=== PATIENT | female | born 1935 | race Caucasian/White ===

== ENCOUNTER 2022-04-12 22:43 | Inpatient (IN) | payer MEDICARE ==
[~2022-04-12] VITALS: Ht 157.5 cm; Wt 78.5 kg
[2022-04-12 23:09] LABS: BASOPHILS % 0.2 % (0.0-1.0); HEMATOCRIT 47.9 % (34.2-44.1); HEMOGLOBIN 15.8 g/dL (12.0-16.0); LYMPHOCYTES # (AUTO) 1.1 (1.0-3.2); LYMPHOCYTES % 9.6 % (18.0-39.1); MEAN CORPUSCULAR VOLUME 94.1 fL (81-99); MONOCYTES # (AUTO) 0.4 (0.2-0.8); MONOCYTES % 3.8 % (4.4-11.3); NEUTROPHILS # (AUTO) 9.6 (2.1-6.9); PLATELET COUNT 272 x10e3/uL (140-360); RED BLOOD COUNT 5.09 x10e6/uL (3.6-5.1); RED CELL DISTRIBUTION WIDTH 14.6 % (11.7-14.4)
[2022-04-12 23:11] LABS: CLARITY,URINE CLEAR (CLEAR); COLOR,URINE YELLOW (YELLOW); KETONES,URINE TRACE (NEGATIVE); LEUKOCYTE ESTERASE ,URINE NEGATIVE (NEGATIVE); NITRITE,URINE NEGATIVE (NEGATIVE); PROTEIN,URINE DIPSTICK 2+ (NEGATIVE)
[2022-04-12 23:15] LABS: AMORPHOUS SEDIMENT,URINE FEW (FEW); BACTERIA,URINE FEW /HPF; EPITHELIAL CELLS,URINE RARE /LPF; RBC,URINE 0-5 /HPF (0-5); WBC,URINE (MAN) 0-5 /HPF (0-5)
[2022-04-12] MEDS ORDERED: ACETAMINOPHEN 325 MG TAB PO ONE (23:15)
[2022-04-12] MEDS ORDERED: SODIUM CHLORIDE 0.9% 1000ML 1,000 ML IV SCH (23:15)
[2022-04-12 23:27] LABS: ALBUMIN/GLOBULIN RATIO 0.6 (0.8-2.0); ANION GAP 18.5 mmol/L (8-16); CALCIUM 9.1 mg/dL (8.4-10.2); CREATININE, SERUM 0.77 mg/dL (0.57-1.11); POTASSIUM 4.5 mmol/L (3.5-5.1)
[2022-04-12 23:31] LABS: B-TYPE NATRIURETIC PEPTIDE2 40.5 pg/mL (0-100)
[2022-04-12 23:34] LABS: CREATINE KINASE MB 0.8 ng/mL (0-5.0)
[2022-04-12] MEDS ORDERED: SODIUM CHLORIDE 0.9% 1000ML 1,000 ML IV ONE (23:45)
[2022-04-13] VITALS (8 sets, daily range): BP systolic 140–167; BP diastolic 57–86
[2022-04-13] MEDS ORDERED: SODIUM CHLORIDE 0.9% 1000ML 1,000 ML IV SCH
[2022-04-13] MEDS ORDERED: ONDANSETRON HCL INJ 2MG/ML 2ML 2 MG/ML VIAL IV PRN
[2022-04-13] MEDS ORDERED: REMDESIVIR 200MG 200 MG IV SCH
[2022-04-13] MEDS ORDERED: IOPAMIDOL 370 MG/ML 100 ML INFUS..BTL INJ ONE (00:20)
[2022-04-13] MEDS ORDERED: SODIUM CHLORIDE 0.9% 250ML 250 ML ONE (00:26)
[2022-04-13] MEDS ORDERED: POTASSIUM CHLORIDE 20 MEQ TAB CR PO STA (01:22)
[2022-04-13] MEDS ORDERED: DEXTROSE 50% SYRINGE 50 ML IV PRN ×2 (01:30)
[2022-04-13] MEDS ORDERED: ALBUTEROL/IPRATROPIUM 3 ML NEB NEB PRN (01:30)
[2022-04-13] MEDS ORDERED: DIPHENHYDRAMINE HCL 25 MG CAP PO PRN (01:30)
[2022-04-13] MEDS ORDERED: LIDOCAINE 4% PATCH TP PRN (01:30)
[2022-04-13] MEDS ORDERED: HYDRALAZINE HCL 20 MG/ML VIAL IV PRN (01:30)
[2022-04-13] MEDS ORDERED: TRICOR48 MG PO (03:07)
[2022-04-13] MEDS ORDERED: HYDROCHLOROTHIA50 MG PO (03:07)
[2022-04-13] MEDS ORDERED: OXYBUTYNIN CHLOR5 MG PO (03:07)
[2022-04-13] MEDS ORDERED: LOSARTAN POTASS25 MG PO (03:07)
[2022-04-13] MEDS ORDERED: METFORMIN HCL500 M1 PO (03:07)
[2022-04-13] MEDS: INSULIN REGULAR, HUMAN 100 UNIT/1 ML SQ SCH ×4 (07:30→21:00)
[2022-04-13 09:49] LABS: BASOPHILS % 0.3 % (0.0-1.0); EOSINOPHILS % 0.1 % (0.0-6.0); HEMATOCRIT 43.6 % (34.2-44.1); HEMOGLOBIN 14.1 g/dL (12.0-16.0); LYMPHOCYTES # (AUTO) 1.4 (1.0-3.2); LYMPHOCYTES % 18.3 % (18.0-39.1); MEAN CORPUSCULAR HGB CONC 32.3 g/dL (31-35); MEAN CORPUSCULAR VOLUME 95.8 fL (81-99); MONOCYTES # (AUTO) 0.3 (0.2-0.8); MONOCYTES % 3.8 % (4.4-11.3); NEUTROPHILS # (AUTO) 5.9 (2.1-6.9); NEUTROPHILS % 76.9 % (38.7-80.0); PLATELET COUNT 238 x10e3/uL (140-360); RED BLOOD COUNT 4.55 x10e6/uL (3.6-5.1); RED CELL DISTRIBUTION WIDTH 14.7 % (11.7-14.4)
[2022-04-13 10:12] LABS: ALBUMIN 2.5 g/dL (3.5-5.0); ALBUMIN/GLOBULIN RATIO 0.5 (0.8-2.0); ANION GAP 14.4 mmol/L (8-16); CALCIUM 8.3 mg/dL (8.4-10.2); CREATININE, SERUM 0.7 mg/dL (0.57-1.11); POTASSIUM 4.4 mmol/L (3.5-5.1)
[2022-04-13] MEDS: DEXAMETHASONE SOD PHOS 10 MG/1 ML VIAL IV SCH (10:37)
[2022-04-13] MEDS: ASCORBIC ACID 500 MG TAB PO SCH ×2 (10:37→16:42)
[2022-04-13] MEDS: CEFTRIAXONE 2 GM in SODIUM CHLORIDE 0.9% 100 ML IV SCH (10:37)
[2022-04-13] MEDS: ENOXAPARIN INJ 80 MG/0.8 ML SYR SC SCH ×2 (10:37→16:42)
[2022-04-13] MEDS: ZINC SULFATE 50 MG CAP PO SCH (10:37)
[2022-04-13] MEDS: REMDESIVIR 100MG 100 MG IV SCH (23:24)
[2022-04-14] VITALS (8 sets, daily range): BP systolic 138–160; BP diastolic 66–75
[2022-04-14 05:51] LABS: BASOPHILS % 0.1 % (0.0-1.0); HEMATOCRIT 43.3 % (34.2-44.1); HEMOGLOBIN 14.1 g/dL (12.0-16.0); LYMPHOCYTES % 12.6 % (18.0-39.1); MEAN CORPUSCULAR HEMOGLOBIN 31.1 pg (28-32); MEAN CORPUSCULAR HGB CONC 32.6 g/dL (31-35); MEAN CORPUSCULAR VOLUME 95.4 fL (81-99); MONOCYTES # (AUTO) 0.4 (0.2-0.8); MONOCYTES % 5.5 % (4.4-11.3); NEUTROPHILS # (AUTO) 6.2 (2.1-6.9); NEUTROPHILS % 80.9 % (38.7-80.0); PLATELET COUNT 274 x10e3/uL (140-360); RED BLOOD COUNT 4.54 x10e6/uL (3.6-5.1); RED CELL DISTRIBUTION WIDTH 14.3 % (11.7-14.4)
[2022-04-14 06:12] LABS: ANION GAP 15.9 mmol/L (8-16); CALCIUM 8.3 mg/dL (8.4-10.2); CREATININE, SERUM 0.65 mg/dL (0.57-1.11); MAGNESIUM 1.9 MG/DL (1.3-2.1); POTASSIUM 3.9 mmol/L (3.5-5.1)
[2022-04-14 06:39] LABS: THYROID STIMULATING HORMONE 0.38 uIU/mL (0.350-4.940)
[2022-04-14] MEDS: INSULIN REGULAR, HUMAN 100 UNIT/1 ML SQ SCH ×4 (07:30→21:24)
[2022-04-14] MEDS: ZINC SULFATE 50 MG CAP PO SCH (08:43)
[2022-04-14] MEDS: CEFTRIAXONE 2 GM in SODIUM CHLORIDE 0.9% 100 ML IV SCH (08:44)
[2022-04-14] MEDS: ASCORBIC ACID 500 MG TAB PO SCH ×2 (08:44→17:24)
[2022-04-14] MEDS: ENOXAPARIN INJ 80 MG/0.8 ML SYR SC SCH ×2 (08:44→17:25)
[2022-04-14] MEDS: DEXAMETHASONE SOD PHOS 10 MG/1 ML VIAL IV SCH (08:45)
[2022-04-14 08:59] LABS: BASOPHILS % 0.2 % (0.0-1.0); HEMATOCRIT 44.4 % (34.2-44.1); HEMOGLOBIN 14.6 g/dL (12.0-16.0); LYMPHOCYTES # (AUTO) 1.4 (1.0-3.2); LYMPHOCYTES % 13.6 % (18.0-39.1); MEAN CORPUSCULAR HEMOGLOBIN 31.1 pg (28-32); MEAN CORPUSCULAR HGB CONC 32.9 g/dL (31-35); MEAN CORPUSCULAR VOLUME 94.7 fL (81-99); MONOCYTES # (AUTO) 0.6 (0.2-0.8); MONOCYTES % 5.9 % (4.4-11.3); NEUTROPHILS # (AUTO) 8.3 (2.1-6.9); NEUTROPHILS % 79.5 % (38.7-80.0); PLATELET COUNT 296 x10e3/uL (140-360); RED BLOOD COUNT 4.69 x10e6/uL (3.6-5.1); RED CELL DISTRIBUTION WIDTH 14.6 % (11.7-14.4)
[2022-04-14 09:38] LABS: ALBUMIN 2.6 g/dL (3.5-5.0); ALBUMIN/GLOBULIN RATIO 0.5 (0.8-2.0); ANION GAP 13.9 mmol/L (8-16); CREATININE, SERUM 0.66 mg/dL (0.57-1.11); POTASSIUM 3.9 mmol/L (3.5-5.1)
[2022-04-14] MEDS: LOSARTAN POTASSIUM 25 MG TAB PO SCH (11:29)
[2022-04-14] MEDS ORDERED: IOPAMIDOL 370 MG/ML 100 ML INFUS..BTL INJ ONE (12:49)
[2022-04-14] MEDS: OXYBUTYNIN CHLORIDE 5 MG TAB PO SCH (17:24)
[2022-04-15] VITALS (11 sets, daily range): BP systolic 138–171; BP diastolic 50–77
[2022-04-15] MEDS: REMDESIVIR 100MG 100 MG IV SCH ×2 (01:28→23:46)
[2022-04-15] MEDS: INSULIN REGULAR, HUMAN 100 UNIT/1 ML SQ SCH ×4 (07:30→21:31)
[2022-04-15 08:24] LABS: BASOPHILS % 0.1 % (0.0-1.0); HEMATOCRIT 46.3 % (34.2-44.1); HEMOGLOBIN 14.8 g/dL (12.0-16.0); LYMPHOCYTES # (AUTO) 1.2 (1.0-3.2); LYMPHOCYTES % 8.1 % (18.0-39.1); MEAN CORPUSCULAR HEMOGLOBIN 30.8 pg (28-32); MEAN CORPUSCULAR VOLUME 96.3 fL (81-99); MONOCYTES # (AUTO) 0.7 (0.2-0.8); MONOCYTES % 4.7 % (4.4-11.3); NEUTROPHILS # (AUTO) 12.3 (2.1-6.9); NEUTROPHILS % 86.3 % (38.7-80.0); PLATELET COUNT 314 x10e3/uL (140-360); RED BLOOD COUNT 4.81 x10e6/uL (3.6-5.1); RED CELL DISTRIBUTION WIDTH 14.6 % (11.7-14.4)
[2022-04-15 08:46] LABS: ALBUMIN 2.6 g/dL (3.5-5.0); ALBUMIN/GLOBULIN RATIO 0.6 (0.8-2.0); CALCIUM 8.6 mg/dL (8.4-10.2); CREATININE, SERUM 0.67 mg/dL (0.57-1.11)
[2022-04-15] MEDS: ENOXAPARIN INJ 80 MG/0.8 ML SYR SC SCH (08:48)
[2022-04-15] MEDS: FENOFIBRATE 67 MG PO SCH (09:00)
[2022-04-15] MEDS: DEXAMETHASONE SOD PHOS 10 MG/1 ML VIAL IV SCH (09:55)
[2022-04-15] MEDS: ZINC SULFATE 50 MG CAP PO SCH (09:55)
[2022-04-15] MEDS: LOSARTAN POTASSIUM 25 MG TAB PO SCH (09:56)
[2022-04-15] MEDS: ASCORBIC ACID 500 MG TAB PO SCH ×2 (09:56→16:48)
[2022-04-15] MEDS: OXYBUTYNIN CHLORIDE 5 MG TAB PO SCH ×2 (09:56→16:48)
[2022-04-15] MEDS: CEFTRIAXONE 2 GM in SODIUM CHLORIDE 0.9% 100 ML IV SCH (09:56)
[2022-04-15] MEDS: ENOXAPARIN 30 MG/0.3 ML SYR SC SCH (16:48)
[2022-04-15] MEDS ORDERED: SODIUM CHLORIDE 0.9% 250ML 250 ML ONE (23:29)
[2022-04-16] VITALS (21 sets, daily range): BP systolic 122–190; BP diastolic 54–100
[2022-04-16 07:28] LABS: BASOPHILS % 0.2 % (0.0-1.0); HEMATOCRIT 43.5 % (34.2-44.1); HEMOGLOBIN 14.2 g/dL (12.0-16.0); LYMPHOCYTES # (AUTO) 1.3 (1.0-3.2); MEAN CORPUSCULAR HEMOGLOBIN 31.3 pg (28-32); MEAN CORPUSCULAR HGB CONC 32.6 g/dL (31-35); MONOCYTES # (AUTO) 0.7 (0.2-0.8); MONOCYTES % 5.1 % (4.4-11.3); NEUTROPHILS # (AUTO) 11.1 (2.1-6.9); NEUTROPHILS % 83.5 % (38.7-80.0); PLATELET COUNT 240 x10e3/uL (140-360); RED BLOOD COUNT 4.53 x10e6/uL (3.6-5.1); RED CELL DISTRIBUTION WIDTH 14.6 % (11.7-14.4)
[2022-04-16] MEDS: INSULIN REGULAR, HUMAN 100 UNIT/1 ML SQ SCH ×4 (07:30→21:18)
[2022-04-16 08:09] LABS: ALBUMIN 2.4 g/dL (3.5-5.0); ALBUMIN/GLOBULIN RATIO 0.5 (0.8-2.0); ANION GAP 13.9 mmol/L (8-16); CALCIUM 8.2 mg/dL (8.4-10.2); CREATININE, SERUM 0.66 mg/dL (0.57-1.11); POTASSIUM 3.9 mmol/L (3.5-5.1)
[2022-04-16] MEDS: FENOFIBRATE 67 MG PO SCH (09:00)
[2022-04-16] MEDS: DEXAMETHASONE SOD PHOS 10 MG/1 ML VIAL IV SCH (10:09)
[2022-04-16] MEDS: BARICITINIB 2 MG TABLET PO SCH (10:09)
[2022-04-16] MEDS: ASCORBIC ACID 500 MG TAB PO SCH ×2 (10:11→17:11)
[2022-04-16] MEDS: OXYBUTYNIN CHLORIDE 5 MG TAB PO SCH ×3 (10:11→19:46)
[2022-04-16] MEDS: ZINC SULFATE 50 MG CAP PO SCH (10:11)
[2022-04-16] MEDS: LOSARTAN POTASSIUM 25 MG TAB PO SCH (10:12)
[2022-04-16] MEDS: ENOXAPARIN 30 MG/0.3 ML SYR SC SCH ×2 (10:12→17:00)
[2022-04-16] MEDS: CEFTRIAXONE 2 GM in SODIUM CHLORIDE 0.9% 100 ML IV SCH (10:13)
[2022-04-16] MEDS: REMDESIVIR 100MG 100 MG IV SCH (23:22)
[2022-04-17] VITALS (23 sets, daily range): BP systolic 120–193; BP diastolic 59–106
[2022-04-17 06:17] LABS: BASOPHILS % 0.3 % (0.0-1.0); EOSINOPHILS % 0.1 % (0.0-6.0); HEMATOCRIT 40.1 % (34.2-44.1); LYMPHOCYTES # (AUTO) 1.3 (1.0-3.2); MEAN CORPUSCULAR HEMOGLOBIN 31.3 pg (28-32); MEAN CORPUSCULAR HGB CONC 33.9 g/dL (31-35); MEAN CORPUSCULAR VOLUME 92.4 fL (81-99); MONOCYTES # (AUTO) 0.4 (0.2-0.8); MONOCYTES % 3.7 % (4.4-11.3); NEUTROPHILS # (AUTO) 9.5 (2.1-6.9); NEUTROPHILS % 82.6 % (38.7-80.0); RED BLOOD COUNT 4.34 x10e6/uL (3.6-5.1); RED CELL DISTRIBUTION WIDTH 14.6 % (11.7-14.4)
[2022-04-17 06:28] LABS: HEMOGLOBIN 13.6 g/dL (12.0-16.0); PLATELET COUNT 175 x10e3/uL (140-360)
[2022-04-17 06:50] LABS: ALBUMIN 2.2 g/dL (3.5-5.0); ALBUMIN/GLOBULIN RATIO 0.5 (0.8-2.0); ANION GAP 10.8 mmol/L (8-16); CALCIUM 7.9 mg/dL (8.4-10.2); CREATININE, SERUM 0.63 mg/dL (0.57-1.11); POTASSIUM 3.8 mmol/L (3.5-5.1)
[2022-04-17] MEDS: INSULIN REGULAR, HUMAN 100 UNIT/1 ML SQ SCH ×4 (07:30→21:14)
[2022-04-17] MEDS: FENOFIBRATE 67 MG PO SCH (09:00)
[2022-04-17] MEDS: LOSARTAN POTASSIUM 25 MG TAB PO SCH (09:55)
[2022-04-17] MEDS: CEFTRIAXONE 2 GM in SODIUM CHLORIDE 0.9% 100 ML IV SCH (09:55)
[2022-04-17] MEDS: DEXAMETHASONE SOD PHOS 10 MG/1 ML VIAL IV SCH (09:55)
[2022-04-17] MEDS: BARICITINIB 2 MG TABLET PO SCH (09:56)
[2022-04-17] MEDS: ENOXAPARIN 30 MG/0.3 ML SYR SC SCH ×3 (09:56→19:14)
[2022-04-17] MEDS: ZINC SULFATE 50 MG CAP PO SCH (09:56)
[2022-04-17] MEDS: ASCORBIC ACID 500 MG TAB PO SCH ×2 (09:56→18:40)
[2022-04-17] MEDS: OXYBUTYNIN CHLORIDE 5 MG TAB PO SCH ×2 (10:12→18:40)
[2022-04-17] MEDS: REMDESIVIR 100MG 100 MG IV SCH (23:50)
[2022-04-18] VITALS (25 sets, daily range): BP systolic 132–176; BP diastolic 53–135
[2022-04-18 06:44] LABS: BASOPHILS % 0.1 % (0.0-1.0); EOSINOPHILS % 0.1 % (0.0-6.0); HEMATOCRIT 43.1 % (34.2-44.1); HEMOGLOBIN 14.2 g/dL (12.0-16.0); LYMPHOCYTES # (AUTO) 1.1 (1.0-3.2); LYMPHOCYTES % 7.8 % (18.0-39.1); MEAN CORPUSCULAR HEMOGLOBIN 31.3 pg (28-32); MEAN CORPUSCULAR HGB CONC 32.9 g/dL (31-35); MEAN CORPUSCULAR VOLUME 94.9 fL (81-99); MONOCYTES # (AUTO) 0.5 (0.2-0.8); MONOCYTES % 3.5 % (4.4-11.3); NEUTROPHILS # (AUTO) 12.3 (2.1-6.9); NEUTROPHILS % 86.1 % (38.7-80.0); PLATELET COUNT 130 x10e3/uL (140-360); RED BLOOD COUNT 4.54 x10e6/uL (3.6-5.1); RED CELL DISTRIBUTION WIDTH 14.6 % (11.7-14.4)
[2022-04-18 07:05] LABS: ALBUMIN 2.2 g/dL (3.5-5.0); ALBUMIN/GLOBULIN RATIO 0.6 (0.8-2.0); CALCIUM 8.2 mg/dL (8.4-10.2); CREATININE, SERUM 0.6 mg/dL (0.57-1.11)
[2022-04-18] MEDS: INSULIN REGULAR, HUMAN 100 UNIT/1 ML SQ SCH ×4 (07:30→20:48)
[2022-04-18] MEDS: DEXAMETHASONE SOD PHOS 10 MG/1 ML VIAL IV SCH (08:49)
[2022-04-18] MEDS: ASCORBIC ACID 500 MG TAB PO SCH ×2 (08:50→16:33)
[2022-04-18] MEDS: ZINC SULFATE 50 MG CAP PO SCH (08:50)
[2022-04-18] MEDS: LOSARTAN POTASSIUM 25 MG TAB PO SCH (08:50)
[2022-04-18] MEDS: BARICITINIB 2 MG TABLET PO SCH (08:50)
[2022-04-18] MEDS: OXYBUTYNIN CHLORIDE 5 MG TAB PO SCH ×2 (08:51→16:33)
[2022-04-18] MEDS: FENOFIBRATE 67 MG PO SCH (08:51)
[2022-04-18] MEDS: ENOXAPARIN 30 MG/0.3 ML SYR SC SCH ×2 (08:51→16:35)
[2022-04-18] MEDS: CEFTRIAXONE 2 GM in SODIUM CHLORIDE 0.9% 100 ML IV SCH (08:52)
[2022-04-18] MEDS: DOCUSATE SODIUM 100 MG CAP PO PRN (16:33)
[2022-04-19] VITALS (21 sets, daily range): BP systolic 124–188; BP diastolic 55–80
[2022-04-19 06:41] LABS: BASOPHILS # (AUTO) 0.1 (0.0-0.1); BASOPHILS % 0.3 % (0.0-1.0); EOSINOPHILS % 0.1 % (0.0-6.0); HEMATOCRIT 42.1 % (34.2-44.1); HEMOGLOBIN 14.3 g/dL (12.0-16.0); LYMPHOCYTES # (AUTO) 1.3 (1.0-3.2); LYMPHOCYTES % 5.8 % (18.0-39.1); MEAN CORPUSCULAR HEMOGLOBIN 31.1 pg (28-32); MONOCYTES # (AUTO) 0.9 (0.2-0.8); NEUTROPHILS # (AUTO) 18.8 (2.1-6.9); PLATELET COUNT 131 x10e3/uL (140-360); RED CELL DISTRIBUTION WIDTH 14.7 % (11.7-14.4)
[2022-04-19 06:55] LABS: MEAN CORPUSCULAR VOLUME 91.5 fL (81-99)
[2022-04-19 07:04] LABS: ALBUMIN 2.2 g/dL (3.5-5.0); ALBUMIN/GLOBULIN RATIO 0.5 (0.8-2.0); ANION GAP 12.1 mmol/L (8-16); CALCIUM 8.3 mg/dL (8.4-10.2); CREATININE, SERUM 0.59 mg/dL (0.57-1.11); POTASSIUM 4.1 mmol/L (3.5-5.1)
[2022-04-19] MEDS: INSULIN REGULAR, HUMAN 100 UNIT/1 ML SQ SCH ×4 (07:30→21:00)
[2022-04-19] MEDS: ENOXAPARIN 30 MG/0.3 ML SYR SC SCH ×2 (08:57→16:43)
[2022-04-19] MEDS: DEXAMETHASONE SOD PHOS 10 MG/1 ML VIAL IV SCH (08:57)
[2022-04-19] MEDS: DOCUSATE SODIUM LIQD 100 MG/10 ML UDC NG SCH (08:57)
[2022-04-19] MEDS: ZINC SULFATE 50 MG CAP PO SCH (08:57)
[2022-04-19] MEDS: ASCORBIC ACID 500 MG TAB PO SCH ×2 (08:57→16:41)
[2022-04-19] MEDS: BARICITINIB 2 MG TABLET PO SCH (08:58)
[2022-04-19] MEDS: OXYBUTYNIN CHLORIDE 5 MG TAB PO SCH ×2 (08:58→16:42)
[2022-04-19] MEDS: FENOFIBRATE 67 MG PO SCH (08:59)
[2022-04-19] MEDS: LOSARTAN POTASSIUM 25 MG TAB PO SCH (08:59)
[2022-04-19] MEDS ORDERED: SODIUM CHLORIDE 0.9% 250ML 250 ML ONE (22:25)
[2022-04-20] VITALS (23 sets, daily range): BP systolic 82–166; BP diastolic 55–94
[2022-04-20 07:11] LABS: BASOPHILS # (AUTO) 0.1 (0.0-0.1); BASOPHILS % 0.4 % (0.0-1.0); EOSINOPHILS # (AUTO) 0.1 (0.0-0.4); EOSINOPHILS % 0.4 % (0.0-6.0); HEMATOCRIT 46.8 % (34.2-44.1); HEMOGLOBIN 15.3 g/dL (12.0-16.0); LYMPHOCYTES # (AUTO) 1.7 (1.0-3.2); LYMPHOCYTES % 8.5 % (18.0-39.1); MEAN CORPUSCULAR HEMOGLOBIN 30.8 pg (28-32); MEAN CORPUSCULAR HGB CONC 32.7 g/dL (31-35); MEAN CORPUSCULAR VOLUME 94.4 fL (81-99); MONOCYTES # (AUTO) 0.9 (0.2-0.8); MONOCYTES % 4.4 % (4.4-11.3); NEUTROPHILS # (AUTO) 17.1 (2.1-6.9); NEUTROPHILS % 84.2 % (38.7-80.0); PLATELET COUNT 120 x10e3/uL (140-360); RED BLOOD COUNT 4.96 x10e6/uL (3.6-5.1); RED CELL DISTRIBUTION WIDTH 14.8 % (11.7-14.4)
[2022-04-20] MEDS: INSULIN REGULAR, HUMAN 100 UNIT/1 ML SQ SCH ×4 (07:30→21:00)
[2022-04-20 07:34] LABS: ALBUMIN 2.3 g/dL (3.5-5.0); ALBUMIN/GLOBULIN RATIO 0.5 (0.8-2.0); ANION GAP 12.1 mmol/L (8-16); CALCIUM 8.5 mg/dL (8.4-10.2); CREATININE, SERUM 0.64 mg/dL (0.57-1.11); POTASSIUM 4.1 mmol/L (3.5-5.1)
[2022-04-20] MEDS: ASCORBIC ACID 500 MG TAB PO SCH ×2 (08:47→16:31)
[2022-04-20] MEDS: DOCUSATE SODIUM LIQD 100 MG/10 ML UDC NG SCH (08:47)
[2022-04-20] MEDS: OXYBUTYNIN CHLORIDE 5 MG TAB PO SCH ×2 (08:47→16:31)
[2022-04-20] MEDS: ZINC SULFATE 50 MG CAP PO SCH (08:47)
[2022-04-20] MEDS: DEXAMETHASONE SOD PHOS 10 MG/1 ML VIAL IV SCH (08:48)
[2022-04-20] MEDS: FENOFIBRATE 67 MG PO SCH (08:48)
[2022-04-20] MEDS: LOSARTAN POTASSIUM 25 MG TAB PO SCH (08:49)
[2022-04-20] MEDS: ENOXAPARIN 30 MG/0.3 ML SYR SC SCH ×2 (08:49→16:32)
[2022-04-20] MEDS ORDERED: LACTULOSE SYRUP 20 GM/30 ML UDC PO PRN (15:15)
[2022-04-20] MEDS: DOCUSATE SODIUM 100 MG CAP PO PRN (16:31)
[2022-04-21] VITALS (24 sets, daily range): BP systolic 81–151; BP diastolic 51–86
[2022-04-21 06:49] LABS: BASOPHILS % 0.2 % (0.0-1.0); EOSINOPHILS # (AUTO) 0.1 (0.0-0.4); EOSINOPHILS % 0.4 % (0.0-6.0); HEMATOCRIT 42.1 % (34.2-44.1); HEMOGLOBIN 13.8 g/dL (12.0-16.0); LYMPHOCYTES # (AUTO) 1.1 (1.0-3.2); MEAN CORPUSCULAR HEMOGLOBIN 31.1 pg (28-32); MEAN CORPUSCULAR HGB CONC 32.8 g/dL (31-35); MEAN CORPUSCULAR VOLUME 94.8 fL (81-99); MONOCYTES # (AUTO) 0.7 (0.2-0.8); MONOCYTES % 4.1 % (4.4-11.3); NEUTROPHILS # (AUTO) 15.8 (2.1-6.9); NEUTROPHILS % 87.7 % (38.7-80.0); PLATELET COUNT 132 x10e3/uL (140-360); RED BLOOD COUNT 4.44 x10e6/uL (3.6-5.1); RED CELL DISTRIBUTION WIDTH 14.6 % (11.7-14.4)
[2022-04-21 07:28] LABS: ALBUMIN 2.2 g/dL (3.5-5.0); ALBUMIN/GLOBULIN RATIO 0.5 (0.8-2.0); CALCIUM 8.7 mg/dL (8.4-10.2); CREATININE, SERUM 0.58 mg/dL (0.57-1.11)
[2022-04-21] MEDS: INSULIN REGULAR, HUMAN 100 UNIT/1 ML SQ SCH ×4 (07:30→21:00)
[2022-04-21] MEDS: FENOFIBRATE 67 MG PO SCH (09:00)
[2022-04-21] MEDS: DEXAMETHASONE SOD PHOS 10 MG/1 ML VIAL IV SCH (09:03)
[2022-04-21] MEDS: DOCUSATE SODIUM LIQD 100 MG/10 ML UDC NG SCH (09:05)
[2022-04-21] MEDS: ASCORBIC ACID 500 MG TAB PO SCH ×2 (09:05→16:17)
[2022-04-21] MEDS: OXYBUTYNIN CHLORIDE 5 MG TAB PO SCH ×2 (09:05→16:17)
[2022-04-21] MEDS: LOSARTAN POTASSIUM 25 MG TAB PO SCH (09:06)
[2022-04-21] MEDS: ZINC SULFATE 50 MG CAP PO SCH (09:06)
[2022-04-21] MEDS: ENOXAPARIN 30 MG/0.3 ML SYR SC SCH ×2 (09:07→16:18)
[2022-04-22] VITALS (26 sets, daily range): BP systolic 93–157; BP diastolic 41–108
[2022-04-22] MEDS: INSULIN REGULAR, HUMAN 100 UNIT/1 ML SQ SCH ×4 (06:37→21:17)
[2022-04-22 06:39] LABS: BASOPHILS % 0.2 % (0.0-1.0); EOSINOPHILS # (AUTO) 0.1 (0.0-0.4); EOSINOPHILS % 0.5 % (0.0-6.0); HEMATOCRIT 42.3 % (34.2-44.1); HEMOGLOBIN 13.7 g/dL (12.0-16.0); LYMPHOCYTES # (AUTO) 1.2 (1.0-3.2); LYMPHOCYTES % 6.2 % (18.0-39.1); MEAN CORPUSCULAR HEMOGLOBIN 30.9 pg (28-32); MEAN CORPUSCULAR HGB CONC 32.4 g/dL (31-35); MEAN CORPUSCULAR VOLUME 95.5 fL (81-99); MONOCYTES # (AUTO) 0.7 (0.2-0.8); NEUTROPHILS # (AUTO) 16.3 (2.1-6.9); NEUTROPHILS % 87.7 % (38.7-80.0); PLATELET COUNT 133 x10e3/uL (140-360); RED BLOOD COUNT 4.43 x10e6/uL (3.6-5.1); RED CELL DISTRIBUTION WIDTH 14.6 % (11.7-14.4)
[2022-04-22 07:10] LABS: ALBUMIN 2.1 g/dL (3.5-5.0); ALBUMIN/GLOBULIN RATIO 0.5 (0.8-2.0); ANION GAP 12.2 mmol/L (8-16); CALCIUM 8.5 mg/dL (8.4-10.2); CREATININE, SERUM 0.64 mg/dL (0.57-1.11); POTASSIUM 4.2 mmol/L (3.5-5.1)
[2022-04-22] MEDS: DEXAMETHASONE SOD PHOS 10 MG/1 ML VIAL IV SCH (08:37)
[2022-04-22] MEDS: OXYBUTYNIN CHLORIDE 5 MG TAB PO SCH ×2 (08:40→16:23)
[2022-04-22] MEDS: ASCORBIC ACID 500 MG TAB PO SCH ×2 (08:40→16:23)
[2022-04-22] MEDS: ZINC SULFATE 50 MG CAP PO SCH (08:40)
[2022-04-22] MEDS: FENOFIBRATE 67 MG PO SCH (08:41)
[2022-04-22] MEDS: ENOXAPARIN 30 MG/0.3 ML SYR SC SCH ×2 (08:41→16:23)
[2022-04-22] MEDS: DOCUSATE SODIUM LIQD 100 MG/10 ML UDC NG SCH (09:00)
[2022-04-22] MEDS: LOSARTAN POTASSIUM 25 MG TAB PO SCH (09:06)
[2022-04-22] MEDS: GUAIFENESIN 600MG/DEXTROMETHORPHAN 30MG TABSR PO PRN ×2 (11:40→22:43)
[2022-04-23] VITALS (23 sets, daily range): BP systolic 59–159; BP diastolic 20–103
[2022-04-23] MEDS: INSULIN REGULAR, HUMAN 100 UNIT/1 ML SQ SCH ×4 (07:30→21:37)
[2022-04-23] MEDS: FENOFIBRATE 67 MG PO SCH (09:00)
[2022-04-23] MEDS: ZINC SULFATE 50 MG CAP PO SCH (09:04)
[2022-04-23] MEDS: ENOXAPARIN 30 MG/0.3 ML SYR SC SCH ×2 (09:04→16:36)
[2022-04-23] MEDS: DOCUSATE SODIUM LIQD 100 MG/10 ML UDC NG SCH (09:06)
[2022-04-23] MEDS: DEXAMETHASONE SOD PHOS 10 MG/1 ML VIAL IV SCH (09:06)
[2022-04-23] MEDS: LOSARTAN POTASSIUM 25 MG TAB PO SCH (09:06)
[2022-04-23] MEDS: OXYBUTYNIN CHLORIDE 5 MG TAB PO SCH ×2 (09:07→16:36)
[2022-04-23] MEDS: ASCORBIC ACID 500 MG TAB PO SCH ×2 (09:07→16:35)
[2022-04-23] MEDS: GUAIFENESIN 600MG/DEXTROMETHORPHAN 30MG TABSR PO PRN ×2 (10:16→21:39)
[2022-04-24] VITALS (23 sets, daily range): BP systolic 100–158; BP diastolic 27–89
[2022-04-24] MEDS: GUAIFENESIN 600MG/DEXTROMETHORPHAN 30MG TABSR PO PRN (06:07)
[2022-04-24 07:03] LABS: BASOPHILS % 0.1 % (0.0-1.0); EOSINOPHILS % 0.2 % (0.0-6.0); HEMATOCRIT 41.6 % (34.2-44.1); HEMOGLOBIN 13.4 g/dL (12.0-16.0); LYMPHOCYTES # (AUTO) 0.9 (1.0-3.2); LYMPHOCYTES % 6.4 % (18.0-39.1); MEAN CORPUSCULAR HEMOGLOBIN 30.9 pg (28-32); MEAN CORPUSCULAR HGB CONC 32.2 g/dL (31-35); MEAN CORPUSCULAR VOLUME 95.9 fL (81-99); MONOCYTES # (AUTO) 0.5 (0.2-0.8); MONOCYTES % 3.3 % (4.4-11.3); NEUTROPHILS # (AUTO) 12.9 (2.1-6.9); NEUTROPHILS % 88.7 % (38.7-80.0); PLATELET COUNT 141 x10e3/uL (140-360); RED BLOOD COUNT 4.34 x10e6/uL (3.6-5.1); RED CELL DISTRIBUTION WIDTH 14.8 % (11.7-14.4)
[2022-04-24 07:24] LABS: ALBUMIN 1.9 g/dL (3.5-5.0); ALBUMIN/GLOBULIN RATIO 0.4 (0.8-2.0); ANION GAP 12.2 mmol/L (8-16); CREATININE, SERUM 0.61 mg/dL (0.57-1.11); POTASSIUM 4.2 mmol/L (3.5-5.1)
[2022-04-24] MEDS: INSULIN REGULAR, HUMAN 100 UNIT/1 ML SQ SCH ×4 (07:30→21:21)
[2022-04-24] MEDS: DEXAMETHASONE SOD PHOS 10 MG/1 ML VIAL IV SCH (08:11)
[2022-04-24] MEDS: ZINC SULFATE 50 MG CAP PO SCH (08:11)
[2022-04-24] MEDS: LOSARTAN POTASSIUM 25 MG TAB PO SCH (08:12)
[2022-04-24] MEDS: DOCUSATE SODIUM LIQD 100 MG/10 ML UDC NG SCH (08:12)
[2022-04-24] MEDS: OXYBUTYNIN CHLORIDE 5 MG TAB PO SCH ×2 (08:13→17:07)
[2022-04-24] MEDS: ASCORBIC ACID 500 MG TAB PO SCH ×2 (08:15→17:07)
[2022-04-24] MEDS: FENOFIBRATE 67 MG PO SCH (08:19)
[2022-04-24] MEDS: ENOXAPARIN 30 MG/0.3 ML SYR SC SCH ×2 (08:19→17:08)
[2022-04-24] MEDS: BENZONATATE 100 MG CAP PO PRN ×2 (13:11→21:04)
[2022-04-25] VITALS (22 sets, daily range): BP systolic 106–176; BP diastolic 51–121
[2022-04-25] MEDS: INSULIN REGULAR, HUMAN 100 UNIT/1 ML SQ SCH ×4 (07:30→21:00)
[2022-04-25] MEDS: LOSARTAN POTASSIUM 25 MG TAB PO SCH (08:57)
[2022-04-25] MEDS: ASCORBIC ACID 500 MG TAB PO SCH ×2 (08:58→17:01)
[2022-04-25] MEDS: OXYBUTYNIN CHLORIDE 5 MG TAB PO SCH ×2 (08:58→17:01)
[2022-04-25] MEDS: DEXAMETHASONE SOD PHOS 10 MG/1 ML VIAL IV SCH (08:59)
[2022-04-25] MEDS: ZINC SULFATE 50 MG CAP PO SCH (09:00)
[2022-04-25] MEDS: GUAIFENESIN/CODEINE 5 ML LIQD PO PRN ×3 (09:00→21:29)
[2022-04-25] MEDS: FENOFIBRATE 67 MG PO SCH (09:00)
[2022-04-25] MEDS: DOCUSATE SODIUM LIQD 100 MG/10 ML UDC NG SCH (09:00)
[2022-04-25] MEDS: CHLORASEPTIC SPRAY 177 ML BTL MM PRN (13:14)
[2022-04-25] MEDS ORDERED: SODIUM CHLORIDE 0.9% 250ML 250 ML ONE (21:32)
[2022-04-26] VITALS (24 sets, daily range): BP systolic 100–167; BP diastolic 57–93
[2022-04-26 06:44] LABS: BASOPHILS % 0.2 % (0.0-1.0); EOSINOPHILS # (AUTO) 0.1 (0.0-0.4); HEMATOCRIT 42.7 % (34.2-44.1); HEMOGLOBIN 13.7 g/dL (12.0-16.0); LYMPHOCYTES # (AUTO) 1.7 (1.0-3.2); LYMPHOCYTES % 11.4 % (18.0-39.1); MEAN CORPUSCULAR HEMOGLOBIN 31.1 pg (28-32); MEAN CORPUSCULAR HGB CONC 32.1 g/dL (31-35); MONOCYTES # (AUTO) 0.7 (0.2-0.8); MONOCYTES % 4.9 % (4.4-11.3); NEUTROPHILS # (AUTO) 11.9 (2.1-6.9); PLATELET COUNT 169 x10e3/uL (140-360); RED CELL DISTRIBUTION WIDTH 14.8 % (11.7-14.4)
[2022-04-26] MEDS: GUAIFENESIN/CODEINE 5 ML LIQD PO PRN ×4 (06:57→20:12)
[2022-04-26 07:07] LABS: ALBUMIN/GLOBULIN RATIO 0.4 (0.8-2.0); ANION GAP 15.4 mmol/L (8-16); CALCIUM 8.7 mg/dL (8.4-10.2); CREATININE, SERUM 0.6 mg/dL (0.57-1.11); POTASSIUM 4.4 mmol/L (3.5-5.1)
[2022-04-26] MEDS: INSULIN REGULAR, HUMAN 100 UNIT/1 ML SQ SCH ×4 (07:30→20:17)
[2022-04-26] MEDS: FENOFIBRATE 67 MG PO SCH (09:00)
[2022-04-26] MEDS: OXYBUTYNIN CHLORIDE 5 MG TAB PO SCH ×2 (09:32→17:23)
[2022-04-26] MEDS: ASCORBIC ACID 500 MG TAB PO SCH ×2 (09:32→17:23)
[2022-04-26] MEDS: DEXAMETHASONE SOD PHOS 10 MG/1 ML VIAL IV SCH (09:32)
[2022-04-26] MEDS: ZINC SULFATE 50 MG CAP PO SCH (09:32)
[2022-04-26] MEDS: DOCUSATE SODIUM LIQD 100 MG/10 ML UDC NG SCH (09:32)
[2022-04-26] MEDS: LOSARTAN POTASSIUM 25 MG TAB PO SCH (09:33)
[2022-04-26] MEDS: ENOXAPARIN SOD INJ 40 MG/0.4 ML SYR SC SCH (09:33)
[2022-04-26] MEDS ORDERED: PIPERACILLIN/TAZOBACTAM 3.375 GM VIAL ONE (09:38)
[2022-04-26] MEDS: CHLORASEPTIC SPRAY 177 ML BTL MM PRN ×2 (11:06→14:58)
[2022-04-26] MEDS: BENZONATATE 100 MG CAP PO PRN (22:24)
[2022-04-27] VITALS (24 sets, daily range): BP systolic 118–170; BP diastolic 48–123
[2022-04-27] MEDS: GUAIFENESIN/CODEINE 5 ML LIQD PO PRN ×3 (04:44→22:32)
[2022-04-27 05:36] LABS: BASOPHILS % 0.2 % (0.0-1.0); EOSINOPHILS % 0.7 % (0.0-6.0); HEMATOCRIT 40.5 % (34.2-44.1); HEMOGLOBIN 13.1 g/dL (12.0-16.0); LYMPHOCYTES # (AUTO) 1.5 (1.0-3.2); LYMPHOCYTES % 11.2 % (18.0-39.1); MEAN CORPUSCULAR HEMOGLOBIN 31.1 pg (28-32); MEAN CORPUSCULAR HGB CONC 32.3 g/dL (31-35); MEAN CORPUSCULAR VOLUME 96.2 fL (81-99); MONOCYTES # (AUTO) 0.5 (0.2-0.8); NEUTROPHILS # (AUTO) 10.8 (2.1-6.9); NEUTROPHILS % 82.5 % (38.7-80.0); PLATELET COUNT 161 x10e3/uL (140-360); RED BLOOD COUNT 4.21 x10e6/uL (3.6-5.1); RED CELL DISTRIBUTION WIDTH 14.6 % (11.7-14.4)
[2022-04-27 05:37] LABS: EOSINOPHILS # (AUTO) 0.1 (0.0-0.4)
[2022-04-27 05:47] LABS: ANION GAP 14.1 mmol/L (8-16); CALCIUM 8.5 mg/dL (8.4-10.2); CREATININE, SERUM 0.58 mg/dL (0.57-1.11); POTASSIUM 4.1 mmol/L (3.5-5.1)
[2022-04-27] MEDS: INSULIN REGULAR, HUMAN 100 UNIT/1 ML SQ SCH ×4 (07:30→20:18)
[2022-04-27] MEDS: FENOFIBRATE 67 MG PO SCH (08:18)
[2022-04-27] MEDS: DEXAMETHASONE SOD PHOS 10 MG/1 ML VIAL IV SCH (08:25)
[2022-04-27] MEDS: ZINC SULFATE 50 MG CAP PO SCH (08:25)
[2022-04-27] MEDS: BENZONATATE 100 MG CAP PO PRN ×2 (08:25→16:50)
[2022-04-27] MEDS: ASCORBIC ACID 500 MG TAB PO SCH ×2 (08:25→16:50)
[2022-04-27] MEDS: LOSARTAN POTASSIUM 25 MG TAB PO SCH (08:26)
[2022-04-27] MEDS: ENOXAPARIN SOD INJ 40 MG/0.4 ML SYR SC SCH (08:26)
[2022-04-27] MEDS: OXYBUTYNIN CHLORIDE 5 MG TAB PO SCH ×2 (08:26→16:50)
[2022-04-27] MEDS: DOCUSATE SODIUM LIQD 100 MG/10 ML UDC NG SCH (08:28)
[2022-04-27] MEDS: BALSAM PERU/CASTOR OIL 60 GM OINT...G. TP SCH (10:24)
[2022-04-28] VITALS (18 sets, daily range): BP systolic 86–161; BP diastolic 45–120
[2022-04-28] MEDS: BENZONATATE 100 MG CAP PO PRN (04:49)
[2022-04-28 06:55] LABS: BASOPHILS % 0.3 % (0.0-1.0); EOSINOPHILS # (AUTO) 0.2 (0.0-0.4); EOSINOPHILS % 1.3 % (0.0-6.0); HEMATOCRIT 39.7 % (34.2-44.1); HEMOGLOBIN 13.1 g/dL (12.0-16.0); LYMPHOCYTES # (AUTO) 1.6 (1.0-3.2); LYMPHOCYTES % 11.4 % (18.0-39.1); MEAN CORPUSCULAR VOLUME 94.1 fL (81-99); MONOCYTES # (AUTO) 0.7 (0.2-0.8); MONOCYTES % 4.8 % (4.4-11.3); NEUTROPHILS # (AUTO) 11.1 (2.1-6.9); NEUTROPHILS % 80.2 % (38.7-80.0); PLATELET COUNT 177 x10e3/uL (140-360); RED BLOOD COUNT 4.22 x10e6/uL (3.6-5.1); RED CELL DISTRIBUTION WIDTH 14.7 % (11.7-14.4)
[2022-04-28 07:21] LABS: ALBUMIN 2.1 g/dL (3.5-5.0); ALBUMIN/GLOBULIN RATIO 0.5 (0.8-2.0); ANION GAP 16.1 mmol/L (8-16); CALCIUM 8.8 mg/dL (8.4-10.2); CREATININE, SERUM 0.61 mg/dL (0.57-1.11); POTASSIUM 4.1 mmol/L (3.5-5.1)
[2022-04-28] MEDS: INSULIN REGULAR, HUMAN 100 UNIT/1 ML SQ SCH ×4 (07:30→21:35)
[2022-04-28] MEDS: ENOXAPARIN SOD INJ 40 MG/0.4 ML SYR SC SCH (08:04)
[2022-04-28] MEDS: DOCUSATE SODIUM LIQD 100 MG/10 ML UDC NG SCH (08:05)
[2022-04-28] MEDS: ZINC SULFATE 50 MG CAP PO SCH (08:05)
[2022-04-28] MEDS: LOSARTAN POTASSIUM 25 MG TAB PO SCH (08:05)
[2022-04-28] MEDS: FENOFIBRATE 67 MG PO SCH (08:05)
[2022-04-28] MEDS: OXYBUTYNIN CHLORIDE 5 MG TAB PO SCH ×2 (08:05→16:02)
[2022-04-28] MEDS: ASCORBIC ACID 500 MG TAB PO SCH ×2 (08:05→16:02)
[2022-04-28] MEDS: BALSAM PERU/CASTOR OIL 60 GM OINT...G. TP SCH (08:06)
[2022-04-28] MEDS: GUAIFENESIN/CODEINE 5 ML LIQD PO PRN ×3 (11:31→21:20)
[2022-04-29] VITALS (26 sets, daily range): BP systolic 120–163; BP diastolic 54–94
[2022-04-29] MEDS: GUAIFENESIN/CODEINE 5 ML LIQD PO PRN ×3 (06:09→22:26)
[2022-04-29] MEDS: INSULIN REGULAR, HUMAN 100 UNIT/1 ML SQ SCH ×4 (07:30→21:00)
[2022-04-29 07:55] LABS: BASOPHILS % 0.3 % (0.0-1.0); EOSINOPHILS # (AUTO) 0.3 (0.0-0.4); EOSINOPHILS % 3.1 % (0.0-6.0); HEMOGLOBIN 13.1 g/dL (12.0-16.0); LYMPHOCYTES # (AUTO) 1.4 (1.0-3.2); LYMPHOCYTES % 12.7 % (18.0-39.1); MEAN CORPUSCULAR HEMOGLOBIN 31.1 pg (28-32); MEAN CORPUSCULAR VOLUME 97.4 fL (81-99); MONOCYTES # (AUTO) 0.4 (0.2-0.8); MONOCYTES % 3.8 % (4.4-11.3); NEUTROPHILS # (AUTO) 8.5 (2.1-6.9); NEUTROPHILS % 78.1 % (38.7-80.0); PLATELET COUNT 151 x10e3/uL (140-360); RED BLOOD COUNT 4.21 x10e6/uL (3.6-5.1); RED CELL DISTRIBUTION WIDTH 15.1 % (11.7-14.4)
[2022-04-29 08:15] LABS: ALBUMIN/GLOBULIN RATIO 0.5 (0.8-2.0); ANION GAP 14.1 mmol/L (8-16); CALCIUM 8.6 mg/dL (8.4-10.2); CREATININE, SERUM 0.61 mg/dL (0.57-1.11); POTASSIUM 4.1 mmol/L (3.5-5.1)
[2022-04-29] MEDS: DOCUSATE SODIUM LIQD 100 MG/10 ML UDC NG SCH (09:00)
[2022-04-29] MEDS: ZINC SULFATE 50 MG CAP PO SCH (09:12)
[2022-04-29] MEDS: DOCUSATE SODIUM 100 MG CAP PO PRN (09:12)
[2022-04-29] MEDS: ENOXAPARIN SOD INJ 40 MG/0.4 ML SYR SC SCH (09:13)
[2022-04-29] MEDS: ASCORBIC ACID 500 MG TAB PO SCH ×2 (09:13→16:28)
[2022-04-29] MEDS: LOSARTAN POTASSIUM 25 MG TAB PO SCH (09:14)
[2022-04-29] MEDS: BALSAM PERU/CASTOR OIL 60 GM OINT...G. TP SCH (09:15)
[2022-04-29] MEDS: OXYBUTYNIN CHLORIDE 5 MG TAB PO SCH ×2 (09:16→16:28)
[2022-04-29] MEDS: BENZONATATE 100 MG CAP PO PRN (20:17)
[2022-04-30] VITALS (27 sets, daily range): BP systolic 116–175; BP diastolic 54–89
[2022-04-30] MEDS: BENZONATATE 100 MG CAP PO PRN ×2 (01:06→23:52)
[2022-04-30] MEDS: GUAIFENESIN/CODEINE 5 ML LIQD PO PRN ×3 (05:17→22:25)
[2022-04-30] MEDS: INSULIN REGULAR, HUMAN 100 UNIT/1 ML SQ SCH ×4 (07:30→21:40)
[2022-04-30] MEDS: OXYBUTYNIN CHLORIDE 5 MG TAB PO SCH ×2 (08:35→16:00)
[2022-04-30] MEDS: ASCORBIC ACID 500 MG TAB PO SCH ×2 (08:35→16:01)
[2022-04-30] MEDS: DOCUSATE SODIUM 100 MG CAP PO PRN (08:35)
[2022-04-30] MEDS: ZINC SULFATE 50 MG CAP PO SCH (08:35)
[2022-04-30] MEDS: BALSAM PERU/CASTOR OIL 60 GM OINT...G. TP SCH (08:36)
[2022-04-30] MEDS: LOSARTAN POTASSIUM 25 MG TAB PO SCH (08:36)
[2022-04-30] MEDS: ENOXAPARIN SOD INJ 40 MG/0.4 ML SYR SC SCH (08:36)
[2022-04-30] MEDS: DOCUSATE SODIUM LIQD 100 MG/10 ML UDC NG SCH (08:56)
[2022-04-30 10:39] LABS: BASOPHILS % 0.3 % (0.0-1.0); EOSINOPHILS # (AUTO) 0.3 (0.0-0.4); EOSINOPHILS % 2.7 % (0.0-6.0); HEMATOCRIT 39.9 % (34.2-44.1); HEMOGLOBIN 12.8 g/dL (12.0-16.0); LYMPHOCYTES # (AUTO) 1.2 (1.0-3.2); LYMPHOCYTES % 10.4 % (18.0-39.1); MEAN CORPUSCULAR HEMOGLOBIN 31.4 pg (28-32); MEAN CORPUSCULAR HGB CONC 32.1 g/dL (31-35); MEAN CORPUSCULAR VOLUME 97.8 fL (81-99); MONOCYTES # (AUTO) 0.3 (0.2-0.8); MONOCYTES % 2.9 % (4.4-11.3); NEUTROPHILS # (AUTO) 9.2 (2.1-6.9); NEUTROPHILS % 82.2 % (38.7-80.0); PLATELET COUNT 168 x10e3/uL (140-360); RED BLOOD COUNT 4.08 x10e6/uL (3.6-5.1); RED CELL DISTRIBUTION WIDTH 14.9 % (11.7-14.4)
[2022-04-30 11:00] LABS: ALBUMIN/GLOBULIN RATIO 0.4 (0.8-2.0); CALCIUM 8.7 mg/dL (8.4-10.2); CREATININE, SERUM 0.59 mg/dL (0.57-1.11)
[2022-05-01] VITALS (22 sets, daily range): BP systolic 125–178; BP diastolic 60–143
[2022-05-01] MEDS: GUAIFENESIN/CODEINE 5 ML LIQD PO PRN ×3 (03:41→20:30)
[2022-05-01 07:06] LABS: BASOPHILS % 0.3 % (0.0-1.0); EOSINOPHILS # (AUTO) 0.3 (0.0-0.4); EOSINOPHILS % 1.9 % (0.0-6.0); HEMOGLOBIN 13.3 g/dL (12.0-16.0); LYMPHOCYTES % 7.6 % (18.0-39.1); MEAN CORPUSCULAR HEMOGLOBIN 30.9 pg (28-32); MEAN CORPUSCULAR HGB CONC 33.3 g/dL (31-35); MEAN CORPUSCULAR VOLUME 92.8 fL (81-99); MONOCYTES # (AUTO) 0.5 (0.2-0.8); MONOCYTES % 3.8 % (4.4-11.3); PLATELET COUNT 178 x10e3/uL (140-360); RED BLOOD COUNT 4.31 x10e6/uL (3.6-5.1); RED CELL DISTRIBUTION WIDTH 14.6 % (11.7-14.4)
[2022-05-01] MEDS: INSULIN REGULAR, HUMAN 100 UNIT/1 ML SQ SCH ×5 (07:30→23:33)
[2022-05-01 07:41] LABS: ALBUMIN/GLOBULIN RATIO 0.4 (0.8-2.0); ANION GAP 15.3 mmol/L (8-16); CALCIUM 8.8 mg/dL (8.4-10.2); CREATININE, SERUM 0.52 mg/dL (0.57-1.11); POTASSIUM 4.3 mmol/L (3.5-5.1)
[2022-05-01] MEDS: DOCUSATE SODIUM LIQD 100 MG/10 ML UDC NG SCH (08:26)
[2022-05-01] MEDS: LOSARTAN POTASSIUM 100 MG TAB PO SCH (08:28)
[2022-05-01] MEDS: OXYBUTYNIN CHLORIDE 5 MG TAB PO SCH ×2 (08:29→16:47)
[2022-05-01] MEDS: ASCORBIC ACID 500 MG TAB PO SCH ×2 (08:29→16:47)
[2022-05-01] MEDS: ENOXAPARIN SOD INJ 40 MG/0.4 ML SYR SC SCH (08:29)
[2022-05-01] MEDS: BALSAM PERU/CASTOR OIL 60 GM OINT...G. TP SCH (08:29)
[2022-05-01] MEDS: ZINC SULFATE 50 MG CAP PO SCH (08:29)
[2022-05-01] MEDS: BENZONATATE 100 MG CAP PO PRN (23:33)
[2022-05-02] VITALS (11 sets, daily range): BP systolic 123–150; BP diastolic 56–117
[2022-05-02] MEDS: GUAIFENESIN/CODEINE 5 ML LIQD PO PRN ×2 (03:20→07:34)
[2022-05-02 06:50] LABS: BASOPHILS % 0.4 % (0.0-1.0); EOSINOPHILS # (AUTO) 0.5 (0.0-0.4); EOSINOPHILS % 4.2 % (0.0-6.0); HEMATOCRIT 40.4 % (34.2-44.1); HEMOGLOBIN 12.8 g/dL (12.0-16.0); LYMPHOCYTES # (AUTO) 1.5 (1.0-3.2); LYMPHOCYTES % 13.2 % (18.0-39.1); MEAN CORPUSCULAR HEMOGLOBIN 30.9 pg (28-32); MEAN CORPUSCULAR HGB CONC 31.7 g/dL (31-35); MEAN CORPUSCULAR VOLUME 97.6 fL (81-99); MONOCYTES # (AUTO) 0.5 (0.2-0.8); MONOCYTES % 4.6 % (4.4-11.3); NEUTROPHILS # (AUTO) 8.6 (2.1-6.9); NEUTROPHILS % 76.6 % (38.7-80.0); PLATELET COUNT 193 x10e3/uL (140-360); RED BLOOD COUNT 4.14 x10e6/uL (3.6-5.1); RED CELL DISTRIBUTION WIDTH 14.7 % (11.7-14.4)
[2022-05-02 07:16] LABS: ALBUMIN/GLOBULIN RATIO 0.4 (0.8-2.0); ANION GAP 17.5 mmol/L (8-16); CALCIUM 9.1 mg/dL (8.4-10.2); CREATININE, SERUM 0.53 mg/dL (0.57-1.11); POTASSIUM 4.5 mmol/L (3.5-5.1)
[2022-05-02] MEDS: OXYBUTYNIN CHLORIDE 5 MG TAB PO SCH (08:31)
[2022-05-02] MEDS: DOCUSATE SODIUM LIQD 100 MG/10 ML UDC NG SCH (08:31)
[2022-05-02] MEDS: ZINC SULFATE 50 MG CAP PO SCH (08:31)
[2022-05-02] MEDS: ASCORBIC ACID 500 MG TAB PO SCH (08:32)
[2022-05-02] MEDS: ENOXAPARIN SOD INJ 40 MG/0.4 ML SYR SC SCH (08:32)
[2022-05-02] MEDS: LOSARTAN POTASSIUM 100 MG TAB PO SCH (08:32)
[2022-05-02] MEDS: BALSAM PERU/CASTOR OIL 60 GM OINT...G. TP SCH (08:46)
[2022-05-02] MEDS: INSULIN REGULAR, HUMAN 100 UNIT/1 ML SQ SCH (11:30)
[2022-05-02] MEDS: BENZONATATE 100 MG CAP PO PRN (12:09)
== END 2022-05-02 13:55 | DRG 871 ==
LOC: ER 22:55 → ERHOLD 04-13 00:10 → MED/SURG3 04-13 00:52 → ICU 04-15 18:42
PROVIDERS: ADMIT Internal Medicine; ATTEND Internal Medicine
PROC: 8E0ZXY6 Isolation (ICD-10-PCS; 2022-04-13)
PROC: XW033E5 Introduction of Remdesivir Anti-infective into Peripheral Vein, Percutaneous Approach, New Technology Group 5 (ICD-10-PCS; 2022-04-13)
PROC: 3E03329 Introduction of Other Anti-infective into Peripheral Vein, Percutaneous Approach (ICD-10-PCS; 2022-04-13)
PROC: 5A0935A Assistance with Respiratory Ventilation, Less than 24 Consecutive Hours, High Flow/Velocity Cannula (ICD-10-PCS; principal; 2022-04-14)
PROC: 02HV33Z Insertion of Infusion Device into Superior Vena Cava, Percutaneous Approach (ICD-10-PCS; 2022-04-15)
PROC: 5A0945A Assistance with Respiratory Ventilation, 24-96 Consecutive Hours, High Flow/Velocity Cannula (ICD-10-PCS; 2022-04-21)
DX: A41.89 Other specified sepsis (principal); G93.41 Metabolic encephalopathy; J12.82 Pneumonia due to coronavirus disease 2019; U07.1 COVID-19; J96.21 Acute and chronic respiratory failure with hypoxia; J15.9 Unspecified bacterial pneumonia; I10 Essential (primary) hypertension; E78.5 Hyperlipidemia, unspecified; K74.60 Unspecified cirrhosis of liver; E11.69 Type 2 diabetes mellitus with other specified complication; Z79.4 Long term (current) use of insulin; I35.0 Nonrheumatic aortic (valve) stenosis; Z88.8 Allergy status to other drugs, medicaments and biological substances; Z91.048 Other nonmedicinal substance allergy status; E66.09 Other obesity due to excess calories; Z68.31 Body mass index [BMI] 31.0-31.9, adult; Z88.6 Allergy status to analgesic agent; I45.10 Unspecified right bundle-branch block; Z75.1 Person awaiting admission to adequate facility elsewhere; I25.10 Atherosclerotic heart disease of native coronary artery without angina pectoris; K76.0 Fatty (change of) liver, not elsewhere classified
CPT/HCPCS: 36415; 36569; 71045; 71260; 76770; 80048; 80053; 81001; 82550; 82553; 82948; 83605; 83735; 83880; 84443; 84484; 85025; 85379; 86140; 87040; 93005; 93306; 94799; 96372; 99251; 99284; J0248; J0360; J0456; J0696; J1100; J1650; J1817; J2543; J7030; J7050; Q9967

== ENCOUNTER 2024-02-28 12:48 | Inpatient (IN) | payer MEDICARE ==
[~2024-02-28] VITALS: Ht 157.5 cm; Wt 78.5 kg
[~2024-02-28 12:48] MED LIST: HYDROCHLOROTHIA50 MG PO; LOSARTAN POTASS25 MG PO; METFORMIN HCL500 M1 PO; OXYBUTYNIN CHLOR5 MG PO; TRICOR48 MG PO
[2024-02-28 13:30] LABS: BASOPHILS # (AUTO) 0.1 (0.0-0.1); BASOPHILS % 0.7 % (0.0-1.0); EOSINOPHILS # (AUTO) 0.1 (0.0-0.4); EOSINOPHILS % 0.7 % (0.0-6.0); HEMATOCRIT 43.8 % (34.2-44.1); HEMOGLOBIN 15.5 g/dL (12.0-16.0); LYMPHOCYTES # (AUTO) 2.9 (1.0-3.2); LYMPHOCYTES % 29.8 % (18.0-39.1); MEAN CORPUSCULAR HEMOGLOBIN 32.6 pg (28-32); MEAN CORPUSCULAR HGB CONC 35.4 g/dL (31-35); MEAN CORPUSCULAR VOLUME 92.2 fL (81-99); MONOCYTES # (AUTO) 0.7 (0.2-0.8); MONOCYTES % 7.2 % (4.4-11.3); NEUTROPHILS # (AUTO) 5.9 (2.1-6.9); NEUTROPHILS % 61.3 % (38.7-80.0); PLATELET COUNT 208 x10e3/uL (140-360); RED BLOOD COUNT 4.75 x10e6/uL (3.6-5.1); RED CELL DISTRIBUTION WIDTH 13.8 % (11.7-14.4); WHITE BLOOD COUNT 9.69 x10e3/uL (4.8-10.8)
[2024-02-28 13:35] LABS: INR 1.04; PROTHROMBIN TIME 14.3 seconds (11.9-14.5)
[2024-02-28 13:36] LABS: PARTIAL THROMBOPLASTIN TIME 31.7 seconds (23.8-35.5)
[2024-02-28 13:38] LABS: BILIRUBIN,URINE NEGATIVE (NEGATIVE); CLARITY,URINE HAZY (CLEAR); COLOR,URINE YELLOW (YELLOW); GLUCOSE, URINE NEGATIVE (NEGATIVE); KETONES,URINE 1+ (NEGATIVE); LEUKOCYTE ESTERASE ,URINE NEGATIVE (NEGATIVE); NITRITE,URINE NEGATIVE (NEGATIVE); PH,URINE 7.5 (5 - 7); PROTEIN,URINE DIPSTICK 1+ (NEGATIVE); URINE UROBILINOGEN 1 mg/dL (0.2 - 1)
[2024-02-28 13:40] LABS: BACTERIA,URINE FEW /HPF; EPITHELIAL CELLS,URINE FEW /LPF; RBC,URINE 0-5 /HPF (0-5); WBC,URINE (MAN) 0-5 /HPF (0-5)
[2024-02-28] MEDS: SODIUM CHLORIDE 0.9% 1000ML 1,000 ML IV STA (13:41)
[2024-02-28 13:43] LABS: ALBUMIN 3.6 g/dL (3.5-5.0); ALBUMIN/GLOBULIN RATIO 0.8 (0.8-2.0); BILIRUBIN,TOTAL 1.1 mg/dL (0.2-1.2); CALCIUM 9.4 mg/dL (8.4-10.2); CREATININE, SERUM 0.81 mg/dL (0.57-1.11); MAGNESIUM 1.9 MG/DL (1.3-2.1); TOTAL PROTEIN 7.9 g/dL (6.5-8.1)
[2024-02-28] MEDS: Morphine 2mg Syringe 2 MG/ML SYR IV STA (13:45)
[2024-02-28] MEDS ORDERED: IOPAMIDOL 370 MG/ML 100 ML INFUS..BTL INJ ONE (13:54)
[2024-02-28 16:00] VITALS: TEMP 98.3
[2024-02-28 18:12] VITALS: PULSE 77; RESP 17
[2024-02-28] MEDS ORDERED: ONDANSETRON HCL INJ 2MG/ML 2ML 2 MG/ML VIAL IV PRN (18:45)
[2024-02-28 20:00] VITALS: BP 168/68; PULSE 63; RESP 20; TEMP 98; O2SAT 96
[2024-02-28 20:10] VITALS: PULSE 63; RESP 18; O2SAT 96
[2024-02-28] MEDS: SODIUM CHLORIDE 0.9% 1000ML 1,000 ML IV SCH (20:58)
[2024-02-28] MEDS: HYDROCODONE/APAP 5MG-325MG TAB PO PRN (20:58)
[2024-02-28] MEDS ORDERED: FUROSEMIDE40 MG PO (21:45)
[2024-02-28] MEDS ORDERED: LIPITOR20 MG PO (21:46)
[2024-02-28] MEDS ORDERED: BUSPIRONE HCL5 MG PO (21:46)
[2024-02-28] MEDS ORDERED: CARTIA XT180 MG PO (21:47)
[2024-02-28] MEDS ORDERED: METFORMIN HCL500 M2 PO (21:49)
[2024-02-28] MEDS ORDERED: VITAMIN D250 MC1 PO (21:50)
[2024-02-28] MEDS ORDERED: BENZONATATE100 MG PO (21:51)
[2024-02-28] MEDS ORDERED: MECLIZINE HCL12.5 MG PO (21:53)
[2024-02-28] MEDS ORDERED: MACROBID 100 M100 MG PO (21:53)
[2024-02-28] MEDS ORDERED: IPRATROPIU0.2 MG/1 M (21:56)
[2024-02-28] MEDS ORDERED: ALBUTEROL0.63 MG/3 NEB (21:56)
[2024-02-28 22:07] VITALS: BP 168/68; PULSE 63; RESP 18; TEMP 98; O2SAT 96
[2024-02-28 22:11] VITALS: BP 168/68; PULSE 63; RESP 18; TEMP 98; O2SAT 96
[2024-02-28] MEDS ORDERED: HYDRALAZINE HCL 20 MG/ML VIAL IV PRN (22:45)
[2024-02-28] MEDS ORDERED: BENZONATATE 100 MG CAP PO PRN (22:45)
[2024-02-28] MEDS ORDERED: NITROFURANTOIN MACROCRYSTALS 100 MG CAP PO PRN (22:45)
[2024-02-28] MEDS ORDERED: MECLIZINE HCL 12.5 MG TAB PO PRN (22:45)
[2024-02-29] VITALS (10 sets, daily range): BP systolic 112–164; BP diastolic 57–88; PULSE 52–73; RESP 18–22; TEMP 97.7–98.3; O2SAT 94–100
[2024-02-29 04:58] LABS: BASOPHILS # (AUTO) 0.1 (0.0-0.1); BASOPHILS % 0.6 % (0.0-1.0); EOSINOPHILS # (AUTO) 0.2 (0.0-0.4); EOSINOPHILS % 1.9 % (0.0-6.0); HEMOGLOBIN 14.1 g/dL (12.0-16.0); LYMPHOCYTES # (AUTO) 3.5 (1.0-3.2); LYMPHOCYTES % 35.7 % (18.0-39.1); MEAN CORPUSCULAR HEMOGLOBIN 32.3 pg (28-32); MEAN CORPUSCULAR HGB CONC 33.6 g/dL (31-35); MONOCYTES # (AUTO) 0.8 (0.2-0.8); MONOCYTES % 8.3 % (4.4-11.3); NEUTROPHILS # (AUTO) 5.3 (2.1-6.9); NEUTROPHILS % 53.1 % (38.7-80.0); PLATELET COUNT 181 x10e3/uL (140-360); RED BLOOD COUNT 4.37 x10e6/uL (3.6-5.1)
[2024-02-29 05:18] LABS: MEAN CORPUSCULAR VOLUME 96.1 fL (81-99)
[2024-02-29 05:24] LABS: ALBUMIN 3.2 g/dL (3.5-5.0); ALBUMIN/GLOBULIN RATIO 0.8 (0.8-2.0); BILIRUBIN,TOTAL 0.8 mg/dL (0.2-1.2); CALCIUM 8.6 mg/dL (8.4-10.2); CREATININE, SERUM 0.72 mg/dL (0.57-1.11)
[2024-02-29 06:09] LABS: CHOL/HDL RATIO 3.6 (3.0-3.6); MAGNESIUM 1.9 MG/DL (1.3-2.1); PHOSPHORUS 3.6 MG/DL (2.3-4.7)
[2024-02-29 06:29] LABS: THYROID STIMULATING HORMONE 2.472 uIU/mL (0.350-4.940)
[2024-02-29] MEDS: ATORVASTATIN 20 MG TAB PO SCH (09:29)
[2024-02-29] MEDS: DILTIAZEM HCL 180 MG CAP ER PO SCH (09:32)
[2024-02-29] MEDS: DOCUSATE SODIUM 100 MG CAP PO SCH (09:32)
[2024-02-29] MEDS: BUSPIRONE HCL 5 MG TAB PO SCH (09:32)
[2024-02-29] MEDS: OXYBUTYNIN CHLORIDE 5 MG TAB PO SCH (09:32)
[2024-02-29] MEDS: FAMOTIDINE 20 MG TAB PO SCH (09:32)
[2024-02-29] MEDS: LOSARTAN POTASSIUM 25 MG TAB PO SCH (09:33)
[2024-02-29] MEDS: LIDOCAINE 4% PATCH TP SCH (09:33)
[2024-02-29] MEDS: FUROSEMIDE 20 MG TAB PO SCH (09:35)
[2024-02-29] MEDS: IPRATROPIUM BROMIDE 0.02% 2.5 ML NEB INH SCH (09:42)
[2024-02-29] MEDS: ALBUTEROL SULF 0.083% NEB SOLN 3 ML NEB NEB PRN (09:43)
[2024-02-29] MEDS: Morphine 2mg Syringe 2 MG/ML SYR IV PRN (11:16)
[2024-02-29] MEDS: LIDOCAINE 4% PATCH TP ONE (12:13)
[2024-02-29] MEDS: CHOLECALCIFEROL 1,000 UNIT TAB PO SCH (21:02)
[2024-03-01] VITALS (8 sets, daily range): BP systolic 104–151; BP diastolic 44–69; PULSE 45–81; RESP 18–22; TEMP 97.4–98.5; O2SAT 94–100
[2024-03-01] MEDS ORDERED: MELOXICAM 7.5 MG TAB PO ONE
[2024-03-01] MEDS: MELOXICAM 7.5 MG TAB PO STA (00:10)
[2024-03-01] MEDS: CYCLOBENZAPRINE HCL 10 MG TAB PO ONE (00:11)
[2024-03-01] MEDS: MELOXICAM 7.5 MG TAB PO SCH (07:59)
[2024-03-01] MEDS: CYCLOBENZAPRINE HCL 10 MG TAB PO SCH (08:01)
[2024-03-01] MEDS ORDERED: MELOXICAM 7.5 MG TAB PO SCH (09:00)
[2024-03-02] VITALS (9 sets, daily range): BP systolic 127–160; BP diastolic 59–79; PULSE 61–70; RESP 16–20; TEMP 97.9–98.9; O2SAT 88–100
[2024-03-02 05:39] LABS: BASOPHILS # (AUTO) 0.1 (0.0-0.1); BASOPHILS % 0.8 % (0.0-1.0); EOSINOPHILS # (AUTO) 0.5 (0.0-0.4); EOSINOPHILS % 4.7 % (0.0-6.0); HEMATOCRIT 44.1 % (34.2-44.1); HEMOGLOBIN 14.4 g/dL (12.0-16.0); LYMPHOCYTES # (AUTO) 2.8 (1.0-3.2); LYMPHOCYTES % 26.4 % (18.0-39.1); MEAN CORPUSCULAR HEMOGLOBIN 32.2 pg (28-32); MEAN CORPUSCULAR HGB CONC 32.7 g/dL (31-35); MEAN CORPUSCULAR VOLUME 98.7 fL (81-99); MONOCYTES # (AUTO) 0.7 (0.2-0.8); MONOCYTES % 6.4 % (4.4-11.3); NEUTROPHILS # (AUTO) 6.6 (2.1-6.9); NEUTROPHILS % 61.3 % (38.7-80.0); PLATELET COUNT 186 x10e3/uL (140-360); RED BLOOD COUNT 4.47 x10e6/uL (3.6-5.1); RED CELL DISTRIBUTION WIDTH 14.1 % (11.7-14.4)
[2024-03-02 06:43] LABS: ANION GAP 17.1 mmol/L (8-16); CALCIUM 8.6 mg/dL (8.4-10.2); CREATININE, SERUM 0.78 mg/dL (0.57-1.11); MAGNESIUM 1.9 MG/DL (1.3-2.1)
[2024-03-02 06:48] LABS: POTASSIUM 5.1 mmol/L (3.5-5.1)
[2024-03-02 07:03] LABS: PHOSPHORUS 3.7 MG/DL (2.3-4.7)
[2024-03-02] MEDS: MAGNESIUM HYDROXIDE 30 ML UDC PO ONE (13:27)
[2024-03-02] MEDS: FUROSEMIDE INJ 10 MG/ML 2 ML VIAL IV ONE (13:27)
[2024-03-03] VITALS (10 sets, daily range): BP systolic 121–155; BP diastolic 60–77; PULSE 60–70; RESP 16–20; TEMP 97.3–98.6; O2SAT 90–99
[2024-03-03] MEDS ORDERED: MAGNESIUM HYDROXIDE 30 ML UDC PO ONE (05:00)
[2024-03-03 05:24] LABS: BASOPHILS # (AUTO) 0.1 (0.0-0.1); BASOPHILS % 0.8 % (0.0-1.0); EOSINOPHILS # (AUTO) 0.5 (0.0-0.4); EOSINOPHILS % 4.6 % (0.0-6.0); HEMATOCRIT 41.4 % (34.2-44.1); HEMOGLOBIN 13.7 g/dL (12.0-16.0); LYMPHOCYTES % 27.4 % (18.0-39.1); MEAN CORPUSCULAR HEMOGLOBIN 32.1 pg (28-32); MEAN CORPUSCULAR HGB CONC 33.1 g/dL (31-35); MONOCYTES # (AUTO) 0.8 (0.2-0.8); MONOCYTES % 6.8 % (4.4-11.3); NEUTROPHILS # (AUTO) 6.6 (2.1-6.9); PLATELET COUNT 238 x10e3/uL (140-360); RED BLOOD COUNT 4.27 x10e6/uL (3.6-5.1); RED CELL DISTRIBUTION WIDTH 13.9 % (11.7-14.4); WHITE BLOOD COUNT 10.99 x10e3/uL (4.8-10.8)
[2024-03-03 05:47] LABS: CALCIUM 8.8 mg/dL (8.4-10.2); CREATININE, SERUM 0.73 mg/dL (0.57-1.11)
[2024-03-03] MEDS: MELOXICAM 7.5 MG TAB PO SCH (09:04)
[2024-03-03] MEDS: POLYETHYLENE GLYCOL 3350 17 GM PACK PO PRN (09:52)
[2024-03-04] VITALS (9 sets, daily range): BP systolic 112–139; BP diastolic 46–62; PULSE 51–74; RESP 18–22; TEMP 97.6–98.6; O2SAT 93–99
[2024-03-04] MEDS: MAGNESIUM HYDROXIDE 30 ML UDC PO ONE ×2 (00:03→05:06)
[2024-03-04] MEDS: ONDANSETRON HCL 4 MG ORAL DISINTEGRATING TAB PO PRN (13:44)
[2024-03-05] VITALS (8 sets, daily range): BP systolic 95–140; BP diastolic 61–66; PULSE 66–88; RESP 18–22; TEMP 98.6–99.4; O2SAT 88–100
[2024-03-05] MEDS: MAGNESIUM HYDROXIDE 30 ML UDC PO ONE (06:34)
[2024-03-05] MEDS ORDERED: CYCLOBENZAPRINE HCL 10 MG TAB PO PRN (15:45)
[2024-03-06] VITALS (7 sets, daily range): BP systolic 108–154; BP diastolic 54–91; PULSE 64–83; RESP 16–24; TEMP 98–98.9; O2SAT 94–99
[2024-03-06 06:47] LABS: BASOPHILS # (AUTO) 0.1 (0.0-0.1); BASOPHILS % 0.6 % (0.0-1.0); EOSINOPHILS % 0.1 % (0.0-6.0); HEMATOCRIT 43.1 % (34.2-44.1); HEMOGLOBIN 13.8 g/dL (12.0-16.0); LYMPHOCYTES # (AUTO) 1.9 (1.0-3.2); LYMPHOCYTES % 12.6 % (18.0-39.1); MEAN CORPUSCULAR HEMOGLOBIN 31.7 pg (28-32); MEAN CORPUSCULAR VOLUME 98.9 fL (81-99); MONOCYTES # (AUTO) 1.1 (0.2-0.8); MONOCYTES % 7.5 % (4.4-11.3); NEUTROPHILS # (AUTO) 11.8 (2.1-6.9); NEUTROPHILS % 78.7 % (38.7-80.0); PLATELET COUNT 302 x10e3/uL (140-360); RED BLOOD COUNT 4.36 x10e6/uL (3.6-5.1); WHITE BLOOD COUNT 14.98 x10e3/uL (4.8-10.8)
[2024-03-06 07:07] LABS: ANION GAP 15.7 mmol/L (8-16); CALCIUM 9.8 mg/dL (8.4-10.2); CREATININE, SERUM 0.98 mg/dL (0.57-1.11); POTASSIUM 4.7 mmol/L (3.5-5.1)
[2024-03-07 07:24] VITALS: PULSE 90; RESP 18; O2SAT 93
[2024-03-07 07:30] VITALS: BP 115/57; PULSE 90; RESP 19; TEMP 97.8; O2SAT 98
[2024-03-07 07:59] VITALS: BP 115/57; PULSE 90; RESP 19; TEMP 97.8; O2SAT 98
[2024-03-07] MEDS: ACETAMINOPHEN 325 MG TAB PO PRN (09:06)
[2024-03-07 11:47] VITALS: BP 103/72; PULSE 79; RESP 18; TEMP 97.3; O2SAT 98
== END 2024-03-07 12:30 | DRG 552 ==
LOC: ER 13:05 → ERHOLD 18:47 → MED/SURG 19:55 → OBSVTOIN 02-29 10:44 → MED/SURG 03-04 23:47
PROVIDERS: ADMIT Internal Medicine; ATTEND Internal Medicine
DX: S22.079A Unspecified fracture of T9-T10 vertebra, initial encounter for closed fracture (principal); N39.0 Urinary tract infection, site not specified; S32.2XXA Fracture of coccyx, initial encounter for closed fracture; S22.089A Unspecified fracture of T11-T12 vertebra, initial encounter for closed fracture; K80.20 Calculus of gallbladder without cholecystitis without obstruction; E11.65 Type 2 diabetes mellitus with hyperglycemia; R09.02 Hypoxemia; E87.5 Hyperkalemia; B96.20 Unspecified Escherichia coli [E. coli] as the cause of diseases classified elsewhere; I71.9 Aortic aneurysm of unspecified site, without rupture; Y92.009 Unspecified place in unspecified non-institutional (private) residence as the place of occurrence of the external cause; W19.XXXA Unspecified fall, initial encounter; Z11.52 Encounter for screening for COVID-19; I10 Essential (primary) hypertension; E78.5 Hyperlipidemia, unspecified; Z86.16 Personal history of COVID-19; Z88.6 Allergy status to analgesic agent; Z88.8 Allergy status to other drugs, medicaments and biological substances; Z91.048 Other nonmedicinal substance allergy status; Z79.84 Long term (current) use of oral hypoglycemic drugs; E66.9 Obesity, unspecified; H91.8X9 Other specified hearing loss, unspecified ear; R01.1 Cardiac murmur, unspecified; F41.9 Anxiety disorder, unspecified; Z82.2 Family history of deafness and hearing loss; M48.061 Spinal stenosis, lumbar region without neurogenic claudication; M54.16 Radiculopathy, lumbar region; K76.0 Fatty (change of) liver, not elsewhere classified; K59.00 Constipation, unspecified; T40.2X5A Adverse effect of other opioids, initial encounter; Y92.230 Patient room in hospital as the place of occurrence of the external cause; R54 Age-related physical debility; R00.1 Bradycardia, unspecified; Z68.31 Body mass index [BMI] 31.0-31.9, adult
CPT/HCPCS: 36415; 70450; 71045; 72125; 72131; 72148; 74018; 74177; 74470; 76705; 80048; 80053; 80061; 81001; 82948; 83036; 83690; 83735; 84100; 84439; 84443; 85025; 85610; 85730; 87086; 87186; 94640; 94760; 94799; 99252; 99285; G0378; J1940; J2270; J7030; Q0162; Q9967; U0002

== ENCOUNTER 2024-08-15 10:27 | Inpatient (IN) | payer MEDICARE ==
[~2024-08-15] VITALS: Ht 167.6 cm; Wt 75.7 kg
[~2024-08-15 10:27] MED LIST changes: +ALBUTEROL0.63 MG/3 NEB; +BENZONATATE100 MG PO; +BUSPIRONE HCL5 MG PO; +CARTIA XT180 MG PO; +FUROSEMIDE40 MG PO; +IPRATROPIU0.2 MG/1 M; +LIPITOR20 MG PO; +MACROBID 100 M100 MG PO; +MECLIZINE HCL12.5 MG PO; +METFORMIN HCL500 M2 PO; +VITAMIN D250 MC1 PO
[2024-08-15 10:30] VITALS: TEMP 97.8
[2024-08-15 11:15] LABS: BASOPHILS # (AUTO) 0.1 (0.0-0.1); BASOPHILS % 1.1 % (0.0-1.0); EOSINOPHILS # (AUTO) 0.4 (0.0-0.4); EOSINOPHILS % 4.5 % (0.0-6.0); HEMATOCRIT 50.3 % (34.2-44.1); HEMOGLOBIN 15.8 g/dL (12.0-16.0); LYMPHOCYTES # (AUTO) 4.4 (1.0-3.2); LYMPHOCYTES % 45.5 % (18.0-39.1); MEAN CORPUSCULAR HEMOGLOBIN 31.7 pg (28-32); MEAN CORPUSCULAR HGB CONC 31.4 g/dL (31-35); MEAN CORPUSCULAR VOLUME 100.8 fL (81-99); MONOCYTES # (AUTO) 0.5 (0.2-0.8); MONOCYTES % 5.1 % (4.4-11.3); NEUTROPHILS # (AUTO) 4.2 (2.1-6.9); NEUTROPHILS % 43.4 % (38.7-80.0); PLATELET COUNT 218 x10e3/uL (140-360); RED BLOOD COUNT 4.99 x10e6/uL (3.6-5.1); RED CELL DISTRIBUTION WIDTH 13.7 % (11.7-14.4); WHITE BLOOD COUNT 9.65 x10e3/uL (4.8-10.8)
[2024-08-15] MEDS: SODIUM CHLORIDE 0.9% 1000ML 1,000 ML IV STA (11:33)
[2024-08-15 11:38] LABS: BILIRUBIN,URINE NEGATIVE (NEGATIVE); CLARITY,URINE CLEAR (CLEAR); COLOR,URINE YELLOW (YELLOW); GLUCOSE, URINE NEGATIVE (NEGATIVE); KETONES,URINE NEGATIVE (NEGATIVE); LEUKOCYTE ESTERASE ,URINE SMALL (NEGATIVE); NITRITE,URINE NEGATIVE (NEGATIVE); PH,URINE 6 (5 - 7); PROTEIN,URINE DIPSTICK NEGATIVE (NEGATIVE); URINE UROBILINOGEN 0.2 mg/dL (0.2 - 1)
[2024-08-15 11:40] LABS: INR 1.01; PROTHROMBIN TIME 13.9 seconds (11.9-14.5)
[2024-08-15 11:41] LABS: PARTIAL THROMBOPLASTIN TIME 29.3 seconds (23.8-35.5)
[2024-08-15 11:47] LABS: CREATINE KINASE 41 IU/L (29-168); LIPASE 23 U/L (8-78); MAGNESIUM 1.9 MG/DL (1.3-2.1)
[2024-08-15 11:49] LABS: ALBUMIN 4.2 g/dL (3.5-5.0); ANION GAP 15.9 mmol/L (8-16); BILIRUBIN,TOTAL 0.7 mg/dL (0.2-1.2); CREATININE, SERUM 0.95 mg/dL (0.57-1.11); POTASSIUM 3.9 mmol/L (3.5-5.1); TOTAL PROTEIN 8.4 g/dL (6.5-8.1)
[2024-08-15 12:01] LABS: TROPONIN I < 0.001 ng/mL (0-0.300)
[2024-08-15 12:04] VITALS: PULSE 59; RESP 16
[2024-08-15 12:06] LABS: BACTERIA,URINE RARE /HPF; EPITHELIAL CELLS,URINE RARE /LPF; RBC,URINE 0-5 /HPF (0-5); WBC,URINE (MAN) 0-5 /HPF (0-5)
[2024-08-15] MEDS ORDERED: IOPAMIDOL 370 MG/ML 100 ML INFUS..BTL INJ ONE (12:08)
[2024-08-15] MEDS: SODIUM CHLORIDE 0.9% 1000ML 1,000 ML IV SCH (15:01)
[2024-08-15] MEDS: ONDANSETRON HCL INJ 2MG/ML 2ML 2 MG/ML VIAL IV PRN (16:29)
[2024-08-15] MEDS: Morphine 2mg Syringe 2 MG/ML SYR IV PRN (16:30)
[2024-08-15 18:13] VITALS: BP 150/63; PULSE 57; RESP 20; TEMP 97.8; O2SAT 99
[2024-08-15 18:20] VITALS: BP 150/63; PULSE 57; RESP 20; TEMP 97.8; O2SAT 99
[2024-08-15 18:25] VITALS: BP 142/58; PULSE 58; RESP 20; TEMP 97.6; O2SAT 98
[2024-08-15 20:00] VITALS: BP 141/62; PULSE 58; RESP 20; TEMP 97.9; O2SAT 98
[2024-08-15] MEDS ORDERED: HYDRALAZINE HCL 20 MG/ML VIAL IV PRN (23:30)
[2024-08-15] MEDS ORDERED: HYDROCODONE/APAP 10MG-325MG TAB PO PRN (23:30)
[2024-08-15] MEDS ORDERED: ACETAMINOPHEN 325 MG TAB PO PRN (23:30)
[2024-08-16] VITALS (7 sets, daily range): BP systolic 127–152; BP diastolic 55–73; PULSE 55–59; RESP 17–20; TEMP 97.5–98.1; O2SAT 96–98
[2024-08-16 07:02] LABS: BASOPHILS # (AUTO) 0.1 (0.0-0.1); BASOPHILS % 1.2 % (0.0-1.0); EOSINOPHILS # (AUTO) 0.4 (0.0-0.4); HEMATOCRIT 43.7 % (34.2-44.1); HEMOGLOBIN 14.1 g/dL (12.0-16.0); LYMPHOCYTES # (AUTO) 3.1 (1.0-3.2); LYMPHOCYTES % 38.9 % (18.0-39.1); MEAN CORPUSCULAR HEMOGLOBIN 31.8 pg (28-32); MEAN CORPUSCULAR HGB CONC 32.3 g/dL (31-35); MEAN CORPUSCULAR VOLUME 98.6 fL (81-99); MONOCYTES # (AUTO) 0.6 (0.2-0.8); MONOCYTES % 6.9 % (4.4-11.3); NEUTROPHILS # (AUTO) 3.8 (2.1-6.9); NEUTROPHILS % 47.5 % (38.7-80.0); PLATELET COUNT 208 x10e3/uL (140-360); RED BLOOD COUNT 4.43 x10e6/uL (3.6-5.1); RED CELL DISTRIBUTION WIDTH 13.9 % (11.7-14.4); WHITE BLOOD COUNT 8.07 x10e3/uL (4.8-10.8)
[2024-08-16 07:32] LABS: ALBUMIN 3.5 g/dL (3.5-5.0); ALBUMIN/GLOBULIN RATIO 1.1 (0.8-2.0); BILIRUBIN,TOTAL 0.5 mg/dL (0.2-1.2); CALCIUM 8.9 mg/dL (8.4-10.2); CREATININE, SERUM 0.83 mg/dL (0.57-1.11); TOTAL PROTEIN 6.6 g/dL (6.5-8.1)
[2024-08-16] MEDS ORDERED: HYDROCODONE/APAP 10MG-325MG TAB PO PRN (09:30)
[2024-08-16] MEDS ORDERED: MECLIZINE HCL 12.5 MG TAB PO PRN (09:45)
[2024-08-16] MEDS ORDERED: BENZONATATE 100 MG CAP PO PRN (09:45)
[2024-08-16] MEDS: LOSARTAN POTASSIUM 100 MG TAB PO SCH (10:31)
[2024-08-16] MEDS: OXYBUTYNIN CHLORIDE 5 MG TAB PO SCH (10:31)
[2024-08-16] MEDS: BUSPIRONE HCL 5 MG TAB PO SCH (10:31)
[2024-08-16] MEDS: SENNA-S TABLET PO SCH (10:31)
[2024-08-16] MEDS: ATORVASTATIN 40 MG TAB PO SCH (21:44)
[2024-08-17] VITALS (8 sets, daily range): BP systolic 127–151; BP diastolic 57–75; PULSE 51–62; RESP 17–21; TEMP 97.7–99.1; O2SAT 90–98
[2024-08-17] MEDS: DILTIAZEM HCL 180 MG CAP ER PO SCH (08:34)
[2024-08-18 00:43] VITALS: BP 132/71; PULSE 56; RESP 17; TEMP 98.3; O2SAT 100
[2024-08-18 09:30] VITALS: BP 153/93; PULSE 60; RESP 18; TEMP 98.2; O2SAT 98
[2024-08-18 12:30] VITALS: PULSE 55; RESP 20; TEMP 97.3; O2SAT 97
== END 2024-08-18 12:30 | disposition home or self-care (01) | DRG 699 ==
LOC: ER 10:40 → ERHOLD 14:23 → MED/SURG3 17:50
PROVIDERS: ADMIT Internal Medicine; ATTEND Internal Medicine
PROC: 0T9B70Z Drainage of Bladder with Drainage Device, Via Natural or Artificial Opening (ICD-10-PCS; principal; 2024-08-15)
DX: N32.0 Bladder-neck obstruction (principal); M48.54XA Collapsed vertebra, not elsewhere classified, thoracic region, initial encounter for fracture; M48.56XA Collapsed vertebra, not elsewhere classified, lumbar region, initial encounter for fracture; N39.0 Urinary tract infection, site not specified; R33.9 Retention of urine, unspecified; N32.89 Other specified disorders of bladder; N31.9 Neuromuscular dysfunction of bladder, unspecified; K74.60 Unspecified cirrhosis of liver; K80.20 Calculus of gallbladder without cholecystitis without obstruction; I10 Essential (primary) hypertension; E78.5 Hyperlipidemia, unspecified; E11.9 Type 2 diabetes mellitus without complications; Z79.84 Long term (current) use of oral hypoglycemic drugs; E66.01 Morbid (severe) obesity due to excess calories; Z68.27 Body mass index [BMI] 27.0-27.9, adult; G89.29 Other chronic pain; F03.90 Unspecified dementia, unspecified severity, without behavioral disturbance, psychotic disturbance, mood disturbance, and anxiety; R26.89 Other abnormalities of gait and mobility; M19.91 Primary osteoarthritis, unspecified site; Z79.899 Other long term (current) drug therapy
CPT/HCPCS: 36415; 51700; 72146; 72148; 74177; 80053; 81001; 82550; 82948; 83690; 83735; 84484; 85025; 85610; 85730; 99252; 99284; J0696; J2270; J2405; J7030; Q9967

== ENCOUNTER 2024-10-12 08:16 | Inpatient (IN) | payer MEDICARE ==
[~2024-10-12] VITALS: Ht 167.6 cm; Wt 75.7 kg
[2024-10-12 08:20] VITALS: TEMP 97.8
[2024-10-12 08:57] LABS: BASOPHILS # (AUTO) 0.1 (0.0-0.1); BASOPHILS % 0.8 % (0.0-1.0); EOSINOPHILS % 8.8 % (0.0-6.0); HEMATOCRIT 42.3 % (34.2-44.1); HEMOGLOBIN 13.1 g/dL (12.0-16.0); LYMPHOCYTES # (AUTO) 3.2 (1.0-3.2); LYMPHOCYTES % 28.4 % (18.0-39.1); MEAN CORPUSCULAR HEMOGLOBIN 31.8 pg (28-32); MEAN CORPUSCULAR VOLUME 102.7 fL (81-99); MONOCYTES # (AUTO) 0.6 (0.2-0.8); NEUTROPHILS # (AUTO) 6.3 (2.1-6.9); NEUTROPHILS % 56.6 % (38.7-80.0); PLATELET COUNT 189 x10e3/uL (140-360); RED BLOOD COUNT 4.12 x10e6/uL (3.6-5.1); RED CELL DISTRIBUTION WIDTH 14.6 % (11.7-14.4); WHITE BLOOD COUNT 11.18 x10e3/uL (4.8-10.8)
[2024-10-12 09:06] LABS: ANION GAP 16.6 mmol/L (8-16); CALCIUM 8.8 mg/dL (8.4-10.2); CREATININE, SERUM 0.87 mg/dL (0.57-1.11); POTASSIUM 3.6 mmol/L (3.5-5.1)
[2024-10-12] MEDS: SODIUM CHLORIDE 0.9% 1000ML 1,000 ML IV SCH (12:08)
[2024-10-12] MEDS: Morphine 4mg INJECTION 4 MG/ML INJ IV PRN (13:06)
[2024-10-12 14:15] VITALS: PULSE 54; RESP 25
[2024-10-12 17:01] VITALS: BP 164/63; PULSE 56; RESP 23; TEMP 97.9; O2SAT 99
[2024-10-12] MEDS ORDERED: FLOMAX0.4 MG PO (17:38)
[2024-10-12] MEDS ORDERED: DEXTROSE 50% SYRINGE 50 ML IV PRN (18:15)
[2024-10-12] MEDS ORDERED: IBUPROFEN 600 MG TAB PO PRN (18:30)
[2024-10-12] MEDS ORDERED: SIMETHICONE 80 MG CHEW PO PRN (18:30)
[2024-10-12] MEDS ORDERED: ALBUTEROL/IPRATROPIUM 3 ML NEB NEB PRN (18:30)
[2024-10-12] MEDS ORDERED: DOCUSATE SODIUM 100 MG CAP PO PRN (18:30)
[2024-10-12 20:18] VITALS: BP 148/55; PULSE 59; RESP 20; TEMP 98; O2SAT 93
[2024-10-12] MEDS: INSULIN REGULAR, HUMAN 100 UNIT/1 ML SQ SCH (21:00)
[2024-10-12] MEDS: CALCIUM CARBONATE/VITAMIN D3 500 MG TAB PO SCH (21:21)
[2024-10-12] MEDS: MELATONIN 3 MG TAB PO PRN (21:21)
[2024-10-12 22:43] VITALS: RESP 18
[2024-10-12 23:30] VITALS: BP 150/59; PULSE 63; RESP 18; TEMP 97.8; O2SAT 96
[2024-10-13] VITALS (8 sets, daily range): BP systolic 137–164; BP diastolic 53–76; PULSE 55–85; RESP 18–23; TEMP 97.8–98.6; O2SAT 90–100
[2024-10-13 05:56] LABS: BASOPHILS # (AUTO) 0.1 (0.0-0.1); BASOPHILS % 0.8 % (0.0-1.0); EOSINOPHILS # (AUTO) 1.2 (0.0-0.4); EOSINOPHILS % 11.5 % (0.0-6.0); HEMATOCRIT 43.5 % (34.2-44.1); HEMOGLOBIN 13.4 g/dL (12.0-16.0); LYMPHOCYTES # (AUTO) 3.2 (1.0-3.2); LYMPHOCYTES % 29.6 % (18.0-39.1); MEAN CORPUSCULAR HEMOGLOBIN 32.1 pg (28-32); MEAN CORPUSCULAR HGB CONC 30.8 g/dL (31-35); MEAN CORPUSCULAR VOLUME 104.3 fL (81-99); MONOCYTES # (AUTO) 0.5 (0.2-0.8); MONOCYTES % 5.1 % (4.4-11.3); NEUTROPHILS # (AUTO) 5.6 (2.1-6.9); NEUTROPHILS % 52.6 % (38.7-80.0); PLATELET COUNT 181 x10e3/uL (140-360); RED BLOOD COUNT 4.17 x10e6/uL (3.6-5.1); RED CELL DISTRIBUTION WIDTH 14.7 % (11.7-14.4); WHITE BLOOD COUNT 10.63 x10e3/uL (4.8-10.8)
[2024-10-13 06:33] LABS: ANION GAP 14.9 mmol/L (8-16); CREATININE, SERUM 0.84 mg/dL (0.57-1.11); POTASSIUM 3.9 mmol/L (3.5-5.1)
[2024-10-13] MEDS: BUSPIRONE HCL 5 MG TAB PO SCH (08:35)
[2024-10-13] MEDS: ATORVASTATIN 40 MG TAB PO SCH (08:35)
[2024-10-13] MEDS ORDERED: PROPOFOL IV EMULSION 10 MG/ML 20 ML VIAL ONE (10:28)
[2024-10-13] MEDS ORDERED: LIDOCAINE HCL 2% LOCAL INJ 5 ML SDV VIAL INJ ONE (10:28)
[2024-10-13] MEDS ORDERED: ROCURONIUM BROMIDE 1 ML IV ONE (10:28)
[2024-10-13] MEDS ORDERED: FENTANYL CITRATE/PF 100MCG/2 ML INJ ONE (10:28)
[2024-10-13] MEDS ORDERED: EYE LUBRICANT OPTH OINT 3.5GM TUBE OP ONE (11:31)
[2024-10-13] MEDS ORDERED: SEVOFLURANE INHAL SOLN 250 ML PEN BTL ONE (11:36)
[2024-10-13] MEDS ORDERED: FAMOTIDINE 20 MG/2 ML VIAL IV ONE (11:46)
[2024-10-13] MEDS ORDERED: ONDANSETRON HCL INJ 2MG/ML 2ML 2 MG/ML VIAL ONE (11:46)
[2024-10-13] MEDS ORDERED: SUGAMMADEX SODIUM 200 MG/2 ML VIAL IV ONE (12:30)
[2024-10-13] MEDS: FENTANYL CITRATE/PF 100MCG/2 ML INJ ONE (16:28)
[2024-10-14] VITALS (10 sets, daily range): BP systolic 149–182; BP diastolic 70–93; PULSE 56–79; RESP 18–23; TEMP 97.4–98.3; O2SAT 95–97
[2024-10-14 05:38] LABS: BASOPHILS % 0.2 % (0.0-1.0); HEMATOCRIT 41.3 % (34.2-44.1); HEMOGLOBIN 13.6 g/dL (12.0-16.0); LYMPHOCYTES # (AUTO) 1.5 (1.0-3.2); LYMPHOCYTES % 12.1 % (18.0-39.1); MEAN CORPUSCULAR HEMOGLOBIN 31.9 pg (28-32); MEAN CORPUSCULAR HGB CONC 32.9 g/dL (31-35); MEAN CORPUSCULAR VOLUME 96.9 fL (81-99); MONOCYTES # (AUTO) 0.5 (0.2-0.8); MONOCYTES % 4.1 % (4.4-11.3); PLATELET COUNT 211 x10e3/uL (140-360); RED BLOOD COUNT 4.26 x10e6/uL (3.6-5.1); RED CELL DISTRIBUTION WIDTH 14.6 % (11.7-14.4); WHITE BLOOD COUNT 12.01 x10e3/uL (4.8-10.8)
[2024-10-14 05:54] LABS: ANION GAP 15.1 mmol/L (8-16); CALCIUM 9.1 mg/dL (8.4-10.2); CREATININE, SERUM 0.85 mg/dL (0.57-1.11); POTASSIUM 4.1 mmol/L (3.5-5.1)
[2024-10-15] VITALS (7 sets, daily range): BP systolic 130–168; BP diastolic 62–117; PULSE 51–68; RESP 18–21; TEMP 97.3–98.2; O2SAT 93–100
[2024-10-15] MEDS: ONDANSETRON HCL INJ 2MG/ML 2ML 2 MG/ML VIAL IV PRN (09:30)
[2024-10-15] MEDS: SODIUM BICARBONATE 650 MG TAB PO SCH (17:34)
[2024-10-15] MEDS: ACETAMINOPHEN/CODEINE 300MG - 30MG TAB PO PRN (17:35)
[2024-10-16] VITALS (11 sets, daily range): BP systolic 121–169; BP diastolic 64–84; PULSE 54–77; RESP 18–21; TEMP 97.4–98.4; O2SAT 92–98
[2024-10-16 07:08] LABS: BASOPHILS # (AUTO) 0.1 (0.0-0.1); BASOPHILS % 0.6 % (0.0-1.0); EOSINOPHILS # (AUTO) 0.5 (0.0-0.4); EOSINOPHILS % 3.4 % (0.0-6.0); HEMATOCRIT 41.7 % (34.2-44.1); HEMOGLOBIN 13.7 g/dL (12.0-16.0); LYMPHOCYTES # (AUTO) 3.9 (1.0-3.2); LYMPHOCYTES % 29.7 % (18.0-39.1); MEAN CORPUSCULAR HGB CONC 32.9 g/dL (31-35); MEAN CORPUSCULAR VOLUME 97.4 fL (81-99); MONOCYTES # (AUTO) 0.8 (0.2-0.8); MONOCYTES % 6.4 % (4.4-11.3); NEUTROPHILS # (AUTO) 7.7 (2.1-6.9); NEUTROPHILS % 59.4 % (38.7-80.0); PLATELET COUNT 208 x10e3/uL (140-360); RED BLOOD COUNT 4.28 x10e6/uL (3.6-5.1); RED CELL DISTRIBUTION WIDTH 14.8 % (11.7-14.4); WHITE BLOOD COUNT 13.05 x10e3/uL (4.8-10.8)
[2024-10-16 07:37] LABS: CALCIUM 9.7 mg/dL (8.4-10.2); CREATININE, SERUM 0.79 mg/dL (0.57-1.11)
[2024-10-16] MEDS: METOPROLOL TARTRATE INJ 1 MG/ML VIAL IV PRN (09:32)
[2024-10-17] VITALS (7 sets, daily range): BP systolic 138–146; BP diastolic 54–62; PULSE 56–71; RESP 17–18; TEMP 97.8–98.2; O2SAT 95–99
[2024-10-17] MEDS ORDERED: SODIUM BICARBO650 MG PO (15:43)
== END 2024-10-17 17:30 | DRG 481 ==
LOC: ER 08:30 → ERHOLD 11:05 → MED/SURG3 15:05
PROVIDERS: ADMIT Internal Medicine; ATTEND Internal Medicine
PROC: 0QH734Z Insertion of Internal Fixation Device into Left Upper Femur, Percutaneous Approach (ICD-10-PCS; principal; 2024-10-13 11:12)
DX: S72.012A Unspecified intracapsular fracture of left femur, initial encounter for closed fracture (principal); E87.20 Acidosis, unspecified; K74.60 Unspecified cirrhosis of liver; R00.1 Bradycardia, unspecified; E11.9 Type 2 diabetes mellitus without complications; F39 Unspecified mood [affective] disorder; E78.5 Hyperlipidemia, unspecified; I10 Essential (primary) hypertension; F32.A Depression, unspecified; W01.0XXA Fall on same level from slipping, tripping and stumbling without subsequent striking against object, initial encounter; Y92.019 Unspecified place in single-family (private) house as the place of occurrence of the external cause; Z79.84 Long term (current) use of oral hypoglycemic drugs; Z90.49 Acquired absence of other specified parts of digestive tract; Z88.6 Allergy status to analgesic agent; Z88.8 Allergy status to other drugs, medicaments and biological substances; Z91.048 Other nonmedicinal substance allergy status
CPT/HCPCS: 36415; 76000; 80048; 80061; 82140; 82948; 83036; 85025; 93306; 94799; 99252; 99284; C1713; C1769; J0690; J2003; J2270; J2405; J7030